=== PATIENT | male | born 1955 | race Caucasian/White ===

== ENCOUNTER 2023-08-03 09:32 | Outpatient (AMB) | payer MEDICARE, BC, SELFPAY ==
--- NOTE | 2023-08-03 09:35 | HO.NEPHOV ---
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 Accompanied by: Self / Same As Patient Allergies azithromycin Allergy (Verified 08/03/23 08:56) Unknown ciprofloxacin Allergy (Verified 08/03/23 08:56) Unknown rivaroxaban Allergy (Verified 08/03/23 08:56) Unknown simvastatin Allergy (Verified 08/03/23 08:56) Unknown torsemide Allergy (Verified 08/03/23 09:36) Unknown amiodarone Allergy (Uncoded 08/03/23 08:56) Unknown eggs Allergy (Uncoded 08/03/23 08:56) Unknown prednisone Allergy (Uncoded 08/03/23 08:56) Unknown rimantadine Allergy (Uncoded 08/03/23 08:56) Unknown HPI HPI Comments History of Present Illness Details Elmer was seen in follow up for CKD. He had recurrent AFib and underwent ablation by Dr Geovani Bentley. He could not handle Amiodarone in the past. His Allopurinol dose has been reduced as he thinks it was triggering runs of VT/SVT. He denies chest pain, shortness of breath, PND, orthopnea or edema. He is closely followed up by Dr Lopes/Mc. He had conversations with HF team for referral to [place] for heart / kidney transplantation.He is not on any new medications. His appetite is good. He tries to compliant with low sodium diet. Had rise in serum creatinine when he had recurrence of arrhythmia. His recent serum creatinine has been 2.1. He has not had any recurrence of renal stones Assessment & Plan Assessment & Plan (1) Calculus of kidney: Code(s): N20.0 - Calculus of kidney (2) Chronic kidney disease, stage 4 (severe): Code(s): N18.4 - Chronic kidney disease, stage 4 (severe) Plan Has CKD 4 for long time; Renal function remains at baseline Hemodynamics stable. Lytes acceptable; Volume status OK Continue to adjust diuretics on his own to keep him @ dry weight Ordered uric acid given reduction in allopurinol dose with H/O renal calculus( uric acid stone) Continue following up with HF team. If he goes to [place] for heart tx eval, he will need renal tx eval as well No other medication changes made today. Answered all questions; F/U given Time spent for data review/ patient encounter and documentation 48 minutes Orders: Orders Blood Urea Nitrogen 08/03/23 N18.4 - Chronic kidney disease, stage 4 (severe), N20.0 - Calculus of kidney Creatinine 08/03/23 N18.4 - Chronic kidney disease, stage 4 (severe), N20.0 - Calculus of kidney Electrolytes 08/03/23 N18.4 - Chronic kidney disease, stage 4 (severe), N20.0 - Calculus of kidney Calcium 08/03/23 N18.4 - Chronic kidney disease, stage 4 (severe), N20.0 - Calculus of kidney Uric Acid 08/03/23 N18.4 - Chronic kidney disease, stage 4 (severe), N20.0 - Calculus of kidney Phosphorus 08/03/23 N18.4 - Chronic kidney disease, stage 4 (severe), N20.0 - Calculus of kidney Vitamin D 25-OH Total 08/03/23 N18.4 - Chronic kidney disease, stage 4 (severe), N20.0 - Calculus of kidney PTHI 08/03/23 N18.4 - Chronic kidney disease, stage 4 (severe), N20.0 - Calculus of kidney Coding Level of Care Code Est Pt Level 5 (84840) Diagnoses Calculus of kidney N20.0 Chronic kidney disease, stage 4 (severe) N18.4 [facility] Medical History (Updated 08/03/23 @ 10:02 by Gregorio Pan MD) Cardiomyopathy Calculus of kidney Chronic kidney disease, stage 4 (severe) Surgical History (Updated 08/03/23 @ 09:37 by Bhargavi Christian MA) S/P ablation of atrial fibrillation Social History (Updated 08/03/23 @ 09:37 by Bhargavi Christian MA) Alcohol intake: never Patient Tobacco Use Status: Never used Tobacco Results Reviewed Results Reviewed: Serum creatinine 2.1; Lytes acceptable
[2023-08-03 09:37] VITALS: BP 80/60; BMI 25.9
== END 2023-08-03 10:11 | disposition home or self-care (01) ==
LOC: HO.HKA 09:32
PROVIDERS: Visit Provider Internal Medicine Nephrology
DX: N20.0 Calculus of kidney (principal); N18.4 Chronic kidney disease, stage 4 (severe)
CPT/HCPCS: 99215

== ENCOUNTER → 2023-08-03 09:32 | Outpatient (BNVA) | payer BC, MEDICARE, SELFPAY | PROVIDERS: Visit Provider Internal Medicine Nephrology ==

== ENCOUNTER 2023-11-02 14:18 | Outpatient (AMB) | payer MEDICARE, BC, SELFPAY ==
[2023-11-02 14:21] VITALS: BP 104/60; PULSE 70; O2SAT 99; BMI 26.4
--- NOTE | 2023-11-02 14:21 | HO.NEPHOV_ITS ---
HPI HPI Comments History of Present Illness Details Elmer was seen in follow up for CKD. He had recurrent AFib and underwent ablation by Dr Geovani Bentley. He could not handle Amiodarone in the past. He is back on Allopurinol. He is due to get his carotid doppler and right leg vascular study. He denies chest pain, shortness of breath, PND, orthopnea or edema. He is closely followed up by Dr Lopes/cM. He has been referred to [place] for heart / kidney transplantation.He is not on any new medications. His appetite is good. He tries to compliant with low sodium diet. Had rise in serum creatinine when he had recurrence of arrhythmia, but settled to baseline now. His recent serum creatinine has been 2.1. He has not had any recurrence of renal stones [facility] Medical History (Updated 11/02/23 @ 14:45 by Gregorio Pan MD) Cardiomyopathy Calculus of kidney Chronic kidney disease, stage 4 (severe) Surgical History S/P ablation of atrial fibrillation Social History Alcohol intake: never Patient Tobacco Use Status: Never used Tobacco Vital Signs 11/02/23 14:21 Height 5 ft 10 in Weight 184 lb 2 oz BMI 26.4 BP 104/60 Blood Pressure Location Lt brachial Position Sitting Pulse 70 Pulse Source Pulse Oximeter Pulse Oximetry (%) 99 Oxygen Delivery Method Room Air Physical Exam Vital Signs: Last Vital Signs Pulse 70 11/02/23 14:21 BP 104/60 11/02/23 14:21 Pulse Ox 99 11/02/23 14:21 Oxygen Delivery Method Room Air 11/02/23 14:21 BMI result Body Mass Index 26.4 Const General: comfortable and no acute distress Orientation/consciousness: patient oriented x3 HEENT Head: Yes normocephalic Mouth: Normal oral and palatal mucosa present Eyes EOM: EOMs intact bilaterally Neck Neck: Yes supple Resp Auscultation: clear to auscultation bilaterally Cardio Jugular venous distension: no JVD Rate: regular rate GI Palpation (GI): Soft to palpation Auscultation: normal bowel sounds General: Yes no CVA tenderness Back/Spine/Pelvis Back: no CVA tenderness Skin General skin exam: no rashes or lesions noted Neuro General: patient oriented x3 and moves all extremities Extrem General: Yes no pedal edema Assessment & Plan Assessment & Plan (1) Chronic kidney disease, stage 4 (severe): Code(s): N18.4 - Chronic kidney disease, stage 4 (severe) (2) Calculus of kidney: Code(s): N20.0 - Calculus of kidney (3) Cardiomyopathy: Code(s): I42.9 - Cardiomyopathy, unspecified Qualifiers: Cardiomyopathy type: ischemic Qualified Code(s): I25.5 - Ischemic cardiomyopathy (4) Secondary hyperparathyroidism of renal origin: Code(s): N25.81 - Secondary hyperparathyroidism of renal origin Plan Has CKD 4 for long time; Renal function remains at baseline Hemodynamics stable. Lytes acceptable; Volume status OK Continue to adjust diuretics on his own to keep him @ dry weight C/W current dose of Allopurinol ( uric acid stone) Continue following up with HF team. When he gets heart tx eval, he will need renal tx eval as well No other medication changes made today. Answered all questions; F/U given Orders: Orders Creatinine Today I42.9 - Cardiomyopathy, unspecified, N18.4 - Chronic kidney disease, stage 4 (severe), N20.0 - Calculus of kidney, N25.81 - Secondary hyperparathyroidism of renal origin Electrolytes Today I42.9 - Cardiomyopathy, unspecified, N18.4 - Chronic kidney disease, stage 4 (severe), N20.0 - Calculus of kidney, N25.81 - Secondary hyperparathyroidism of renal origin Blood Urea Nitrogen Today I42.9 - Cardiomyopathy, unspecified, N18.4 - Chronic kidney disease, stage 4 (severe), N20.0 - Calculus of kidney, N25.81 - Secondary hyperparathyroidism of renal origin Coding Level of Care Code Est Pt Level 4 (64677) Diagnoses Chronic kidney disease, stage 4 (severe) N18.4 Calculus of kidney N20.0 Ischemic cardiomyopathy I25.5 Cardiomyopathy type: ischemic Secondary hyperparathyroidism of renal origin N25.81 Results Reviewed Nephrology Results: No Data to Display
== END 2023-11-02 15:03 | disposition home or self-care (01) ==
PROVIDERS: Visit Provider Internal Medicine Nephrology
DX: N18.4 Chronic kidney disease, stage 4 (severe) (principal); N20.0 Calculus of kidney; I25.5 Ischemic cardiomyopathy; N25.81 Secondary hyperparathyroidism of renal origin
CPT/HCPCS: 99214

== ENCOUNTER → 2023-11-02 14:18 | Outpatient (BNVA) | payer BC, MEDICARE, SELFPAY | PROVIDERS: Visit Provider Internal Medicine Nephrology | DX: N20.0 Calculus of kidney (principal); N18.4 Chronic kidney disease, stage 4 (severe) ==

== ENCOUNTER 2024-01-18 08:15 | Outpatient (REF) | payer MEDICARE, SELFPAY ==
[2024-01-18 11:13] LABS: Anion Gap 12 (12-20); Blood Urea Nitrogen 30 mg/dL (9-16); Carbon Dioxide 25 mmol/L (22-29); Chloride 110 mmol/L (96-108); Estimated Glomerular Filt Rate 30; Potassium 4.3 mmol/L (3.3-5.1); Sodium 143 mmol/L (135-145)
== END 2024-01-18 08:16 | disposition home or self-care (01) ==
LOC: HO.10HDL 08:15
PROVIDERS: Visit Provider Internal Medicine Nephrology
DX: N18.4 Chronic kidney disease, stage 4 (severe) (principal)
CPT/HCPCS: 36415; 80051; 82565; 84520

== ENCOUNTER 2024-03-06 15:28 | Outpatient (REF) | payer MEDICARE, SELFPAY ==
[2024-03-06 17:49] LABS: Anion Gap 14 (12-20); Blood Urea Nitrogen 22 mg/dL (9-16); Calcium 9.4 mg/dL (8.4-10.2); Carbon Dioxide 23 mmol/L (22-29); Chloride 108 mmol/L (96-108); Estimated Glomerular Filt Rate 32; Sodium 141 mmol/L (135-145)
== END 2024-03-06 15:29 | disposition home or self-care (01) ==
LOC: HO.HKASLDS 15:28
PROVIDERS: Visit Provider Internal Medicine Nephrology
DX: N18.4 Chronic kidney disease, stage 4 (severe) (principal); N25.81 Secondary hyperparathyroidism of renal origin
CPT/HCPCS: 36415; 80051; 82310; 82565; 84520

== ENCOUNTER 2024-03-07 12:13 | Outpatient (AMB) | payer BC, SELFPAY ==
[2024-03-07 12:15] VITALS: BP 90/60; PULSE 61; O2SAT 97; BMI 26.1
--- NOTE | 2024-03-07 12:15 | HO.NEPHOV ---
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 He had recurrent AFib recently and had undergone cardioversion. He could not handle Amiodarone in the past. He is back on Allopurinol. He had his carotid doppler and right leg vascular study. He denies chest pain, shortness of breath, PND, orthopnea or edema. He is closely followed up by Dr Lopes/Mc. He has been referred to [place] for heart / kidney transplantation.He is not on any new medications. His appetite is good. He tries to compliant with low sodium diet. Had rise in serum creatinine when he had recurrence of arrhythmia, but settled to baseline now. His recent serum creatinine has been 2.1. He has not had any recurrence of renal stones [facility] Medical History (Updated 11/02/23 @ 14:45 by Gregorio Pan MD) Cardiomyopathy Calculus of kidney Chronic kidney disease, stage 4 (severe) Surgical History S/P ablation of atrial fibrillation Social History Alcohol intake: never Patient Tobacco Use Status: Never used Tobacco Physical Exam Vital Signs: Last Vital Signs Pulse 61 03/07/24 12:15 BP 90/60 03/07/24 12:15 Pulse Ox 97 03/07/24 12:15 Oxygen Delivery Method Room Air 03/07/24 12:15 BMI result Body Mass Index 26.1 Const General: comfortable and no acute distress Orientation/consciousness: patient oriented x3 HEENT Head: Yes normocephalic Mouth: Normal oral and palatal mucosa present Eyes EOM: EOMs intact bilaterally Neck Neck: Yes supple Resp Auscultation: clear to auscultation bilaterally Cardio Jugular venous distension: no JVD Rate: regular rate GI Palpation (GI): Soft to palpation Auscultation: normal bowel sounds General: Yes no CVA tenderness Back/Spine/Pelvis Back: no CVA tenderness Skin General skin exam: no rashes or lesions noted Neuro General: patient oriented x3 and moves all extremities Extrem General: Yes no pedal edema Results Reviewed Nephrology Results: Sodium 141 mmol/L (135-145) 03/06/24 Potassium 4.0 mmol/L (3.3-5.1) 03/06/24 Chloride 108 mmol/L (96-108) 03/06/24 Carbon Dioxide 23 mmol/L (22-29) 03/06/24 BUN 22 mg/dL (9-16) H 03/06/24 Creatinine 2.08 mg/dL (0.5-1.4) H 03/06/24 Calcium 9.4 mg/dL (8.4-10.2) 03/06/24 Assessment & Plan Assessment & Plan (1) Secondary hyperparathyroidism of renal origin: Code(s): N25.81 - Secondary hyperparathyroidism of renal origin Category: Medical (2) Cardiomyopathy: Code(s): I42.9 - Cardiomyopathy, unspecified Category: Medical Qualifiers: Cardiomyopathy type: ischemic Qualified Code(s): I25.5 - Ischemic cardiomyopathy (3) Calculus of kidney: Code(s): N20.0 - Calculus of kidney Category: Medical (4) Chronic kidney disease, stage 4 (severe): Code(s): N18.4 - Chronic kidney disease, stage 4 (severe) Category: Medical Plan Has CKD 4 for long time; Renal function remains at baseline Hemodynamics stable. Lytes acceptable; Volume status OK Continue to adjust diuretics on his own to keep him @ dry weight C/W current dose of Allopurinol ( uric acid stone) Continue following up with HF team. When he gets heart tx eval, he will need renal tx eval as well No other medication changes made today. Answered all questions; F/U given Orders: Orders Creatinine Today I25.5 - Ischemic cardiomyopathy, N18.4 - Chronic kidney disease, stage 4 (severe), N20.0 - Calculus of kidney, N25.81 - Secondary hyperparathyroidism of renal origin Calcium Today I25.5 - Ischemic cardiomyopathy, N18.4 - Chronic kidney disease, stage 4 (severe), N20.0 - Calculus of kidney, N25.81 - Secondary hyperparathyroidism of renal origin Phosphorus Today I25.5 - Ischemic cardiomyopathy, N18.4 - Chronic kidney disease, stage 4 (severe), N20.0 - Calculus of kidney, N25.81 - Secondary hyperparathyroidism of renal origin Vitamin D 25-OH Total Today I25.5 - Ischemic cardiomyopathy, N18.4 - Chronic kidney disease, stage 4 (severe), N20.0 - Calculus of kidney, N25.81 - Secondary hyperparathyroidism of renal origin Blood Urea Nitrogen Today I25.5 - Ischemic cardiomyopathy, N18.4 - Chronic kidney disease, stage 4 (severe), N20.0 - Calculus of kidney, N25.81 - Secondary hyperparathyroidism of renal origin Electrolytes Today I25.5 - Ischemic cardiomyopathy, N18.4 - Chronic kidney disease, stage 4 (severe), N20.0 - Calculus of kidney, N25.81 - Secondary hyperparathyroidism of renal origin Parathyroid Hormone Intact Today I25.5 - Ischemic cardiomyopathy, N18.4 - Chronic kidney disease, stage 4 (severe), N20.0 - Calculus of kidney, N25.81 - Secondary hyperparathyroidism of renal origin Coding Level of Care Code Est Pt Level 4 (10619) Diagnoses Secondary hyperparathyroidism of renal origin N25.81 Ischemic cardiomyopathy I25.5 Cardiomyopathy type: ischemic Calculus of kidney N20.0 Chronic kidney disease, stage 4 (severe) N18.4
== END 2024-03-07 12:59 | disposition home or self-care (01) ==
PROVIDERS: Visit Provider Internal Medicine Nephrology
DX: N25.81 Secondary hyperparathyroidism of renal origin (principal); I25.5 Ischemic cardiomyopathy; N20.0 Calculus of kidney; N18.4 Chronic kidney disease, stage 4 (severe)
CPT/HCPCS: 99214

== ENCOUNTER → 2024-03-07 12:13 | Outpatient (BNVA) | payer BC, MEDICARE, SELFPAY | PROVIDERS: Visit Provider Internal Medicine Nephrology ==

== ENCOUNTER 2024-06-05 10:29 | Outpatient (REF) | payer BC, SELFPAY ==
[2024-06-05 11:36] LABS: Anion Gap 10 (12-20); Blood Urea Nitrogen 32 mg/dL (9-16); Calcium 9.7 mg/dL (8.4-10.2); Carbon Dioxide 25 mmol/L (22-29); Chloride 109 mmol/L (96-108); Estimated Glomerular Filt Rate 29; Phosphorus 2.7 mg/dL (2.7-4.5); Sodium 140 mmol/L (135-145)
[2024-06-05 11:37] LABS: Parathyroid Hormone Intact 89.1 pg/mL (8.7-77.1)
[2024-06-05 11:52] LABS: Vitamin D 25-OH Total 30.2 ng/mL (>30)
== END 2024-06-05 10:30 | disposition home or self-care (01) ==
LOC: HO.10HDL 10:29
PROVIDERS: Visit Provider Internal Medicine Nephrology
DX: N25.81 Secondary hyperparathyroidism of renal origin (principal); N20.0 Calculus of kidney; N18.4 Chronic kidney disease, stage 4 (severe); I25.5 Ischemic cardiomyopathy
CPT/HCPCS: 36415; 80051; 82306; 82310; 82565; 83970; 84100; 84520

== ENCOUNTER 2024-06-06 11:00 | Outpatient (AMB) | payer MEDICARE, BC, SELFPAY ==
--- NOTE | 2024-06-06 11:06 | HO.NEPHOV ---
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 He had recurrent AFib recently and had undergone cardioversion. He could not handle Amiodarone in the past. He is back on Allopurinol. He had his carotid doppler and right leg vascular study. He denies chest pain, shortness of breath, PND, orthopnea or edema. He is closely followed up by Dr Lopes/Mc. He has been referred to [place] for heart / kidney transplantation.He is not on any new medications. His appetite is good. He tries to compliant with low sodium diet. Had rise in serum creatinine when he had recurrence of arrhythmia, but settled to baseline now. His recent serum creatinine has been stable. He has not had any recurrence of renal stones [facility] Medical History (Updated 11/02/23 @ 14:45 by Gregorio Pan MD) Cardiomyopathy Calculus of kidney Chronic kidney disease, stage 4 (severe) Surgical History S/P ablation of atrial fibrillation Social History Alcohol intake: never Patient Tobacco Use Status: Never used Tobacco Review of Systems Const All systems reviewed & are unremarkable except as noted in HPI and below Physical Exam Vital Signs: Last Vital Signs Pulse 71 06/06/24 11:07 BP 80/50 L 06/06/24 11:07 Pulse Ox 98 06/06/24 11:07 Oxygen Delivery Method Room Air 06/06/24 11:07 BMI result Body Mass Index 26.0 Const General: comfortable and no acute distress Orientation/consciousness: patient oriented x3 HEENT Head: Yes normocephalic Mouth: Normal oral and palatal mucosa present Eyes EOM: EOMs intact bilaterally Neck Neck: Yes supple Resp Auscultation: clear to auscultation bilaterally Cardio Jugular venous distension: no JVD Rate: regular rate GI Palpation (GI): Soft to palpation Auscultation: normal bowel sounds General: Yes no CVA tenderness Back/Spine/Pelvis Back: no CVA tenderness Skin General skin exam: no rashes or lesions noted Neuro General: patient oriented x3 and moves all extremities Extrem General: Yes no pedal edema Results Reviewed Nephrology Results: Sodium 140 mmol/L (135-145) 06/05/24 Potassium 4.0 mmol/L (3.3-5.1) 06/05/24 Chloride 109 mmol/L (96-108) H 06/05/24 Carbon Dioxide 25 mmol/L (22-29) 06/05/24 BUN 32 mg/dL (9-16) H 06/05/24 Creatinine 2.26 mg/dL (0.5-1.4) H 06/05/24 Calcium 9.7 mg/dL (8.4-10.2) 06/05/24 Phosphorus 2.7 mg/dL (2.7-4.5) 06/05/24 PTH Intact 89.1 pg/mL (8.7-77.1) H 06/05/24 Assessment & Plan Assessment & Plan (1) Chronic kidney disease, stage 4 (severe): Code(s): N18.4 - Chronic kidney disease, stage 4 (severe) Category: Medical (2) Calculus of kidney: Code(s): N20.0 - Calculus of kidney Category: Medical (3) Secondary hyperparathyroidism of renal origin: Code(s): N25.81 - Secondary hyperparathyroidism of renal origin Category: Medical Plan Has CKD 4 for long time; Renal function remains at baseline Hemodynamics stable. Lytes acceptable; Volume status OK Continue to adjust diuretics on his own to keep him @ dry weight C/W current dose of Allopurinol ( uric acid stone) Continue following up with HF team. When he gets heart tx eval, he will need renal tx eval as well No other medication changes made today. Answered all questions; F/U given Orders: Orders Blood Urea Nitrogen 3 Months N18.4 - Chronic kidney disease, stage 4 (severe) Electrolytes 3 Months N18.4 - Chronic kidney disease, stage 4 (severe) Uric Acid 3 Months N18.4 - Chronic kidney disease, stage 4 (severe) Creatinine 3 Months N18.4 - Chronic kidney disease, stage 4 (severe) Coding Level of Care Code Est Pt Level 4 (05257) Diagnoses Chronic kidney disease, stage 4 (severe) N18.4 Calculus of kidney N20.0 Secondary hyperparathyroidism of renal origin N25.81
[2024-06-06 11:07] VITALS: BP 80/50; PULSE 71; O2SAT 98; BMI 26.0
== END 2024-06-06 11:46 | disposition home or self-care (01) ==
PROVIDERS: PCP Internal Medicine; Visit Provider Internal Medicine Nephrology
DX: N18.4 Chronic kidney disease, stage 4 (severe) (principal); N20.0 Calculus of kidney; N25.81 Secondary hyperparathyroidism of renal origin
CPT/HCPCS: 99214

== ENCOUNTER → 2024-06-06 11:00 | Outpatient (BNVA) | payer BC, MEDICARE, SELFPAY | PROVIDERS: PCP Internal Medicine; Visit Provider Internal Medicine Nephrology ==

== ENCOUNTER 2024-12-04 11:32 | Outpatient (REF) | payer BC, MEDICARE, SELFPAY ==
[2024-12-04 13:50] LABS: Anion Gap 13 (12-20); Blood Urea Nitrogen 37 mg/dL (9-16); Carbon Dioxide 24 mmol/L (22-29); Chloride 107 mmol/L (96-108); Estimated Glomerular Filt Rate 28; Potassium 4.3 mmol/L (3.3-5.1); Sodium 140 mmol/L (135-145)
--- OUTSIDE RECORDS SUMMARY | 2024-12-04 14:10 | XMS_ITS | Encounter Summary ---
Author Organization [facility] Address [address] [place] [address] Phone Care Team Providers Care Human Resources Operations Director Name Role Phone Kimberly Crenshaw MD Primary Care Provider Encounter Details Date Type Department Care Team (Late st Contact Info) Description 02/23/2021 Orders Only [facility] [address] [place] [id number] Gregorio Pan MD Chronic kidney disease stage 4 (HCC); Renal stone Social History Tobacco Use Types Packs/Day Years Used Date Smoking Tobacco: Former Smokeless Tobacco: Former Sex and Gender Information Value Date Recorded Sex Assigned at Not on file Legal Sex Male 5:04 PM EST Gender Identity Not on file Sexual Orientation Not on file COVID-19 Exposure Response Date Recorded In the last month, have you been in contact with someone who was confirmed or suspected to have Coronavirus / COVID-19? No / Unsure 02/25/2021 2:07 PM EDT documented as of this encounter Plan of Treatment Not on file documented as of this encounter Procedures Procedure Name Priority Date/Time Associated Diagnosis Comments CBC Routine 02/24/2021 9:41 AM EDT Chronic kidney disease stage 4 (HCC) Renal stone RENAL FUNCTION PANEL Routine 02/24/2021 9:41 AM EDT documented in this encounter Results * (ABNORMAL) Renal Function Panel (02/24/2021 9:41 AM EDT) Pathologist [facility] Glucose 101(H) (70-99) MG/DL [facility] BUN 35(H) (8-23) MG/DL [facility] Creatinine 2.0(H) (0.7-1.2) MG/DL [facility] Sodium 140 (133-145) MMOL/L [facility] Potassium 4.3 (3.6-5.2) MMOL/L [facility] Chloride 107 (98-107) MMOL/L [facility] Bicarbonate (CO2) 22 (22-29) MMOL/L [facility] Anion Gap 11 (4-17) [facility] Albumin 4.3 (3.4-4.8) GM/DL [facility] Calcium 8.9 (8.6-10.5) MG/DL [facility] Phosphorus, Serum 3.0 (2.5-4.5) MG/DL [facility] Est GFR Non 34 ML/MIN/1.7 3 M2 [facility] Comment: Creatinine based estimated glomerular filtration rate (eGFR) is calculated using the Chronic Kidney Disease Epidemiology Collaboration (CKD-EPI). The CKD-EPI creatinine equation has not been validated in children (<18 years), women or in some racial or ethnic subgroups other than Caucasians and Americans. EST GFR 39 ML/MIN/1.7 3 M2 [facility] Comment: Creatinine based estimated glomerular filtration rate (eGFR) is calculated using the Chronic Kidney Disease Epidemiology Collaboration (CKD-EPI). The CKD-EPI creatinine equation has not been validated in children (<18 years), women or in some racial or ethnic subgroups other than Caucasians and Americans. Testing performed or reported by [facility], a Service of [facility], [address] [place] [address] Caitlyn Gonzalez MD, Watch Assembly Inspector 02/24/2021 9:41 AM EDT 02/24/2021 9:44 AM EDT us Gregorio Pan MD LAB BLOOD ORDERABLES Final Resul t [facility] * (ABNORMAL) CBC (02/24/2021 9:41 AM EDT) White Blood Cells 5.5 (4.0-11.0) K/MM3 [facility] RBC 4.56(L) (4.70-6.10 ) M/MM3 [facility] Hgb 13.9 (13.7-17.1 ) GM/DL [facility] Hematocrit 43.9 (40.5-50.0 ) % [facility] MCV 96.3(H) (80.0-94.0 ) FL [facility] MCH 30.5 (27.0-34.0 ) PG [facility] MCHC 31.7(L) (33.0-37.0 ) g/dL [facility] Platelets 121(L) (150-460) K/MM3 [facility] RDW-SD 47.3(H) (<47.0) FL [facility] MPV 12.1 (9.4-12.4) FL [facility] nRBC Count 0.0 #/100 WBC'S [facility] NRBC Absolute 0.0 K/MM3 [facility] Comment: Testing performed or reported by [facility], a Service of [facility], [address] [place] [id number] Caitlyn Gonzalez MD, Watch Assembly Inspector Blood (Blood, Venous) 02/24/2021 9:41 AM EDT 02/24/2021 9:44 AM EDT us Gregorio Pan MD LAB BLOOD ORDERABLES Final Resul t [facility] documented in this encounter Visit Diagnoses Diagnosis Chronic kidney disease stage 4 (HCC) Renal stone documented in this encounter Care Teams Human Resources Operations Director Relationship Specialty Start Date End Date Kimberly Crenshaw MD [address] PCP - General 10/11/20 documented as of this encounter
--- OUTSIDE RECORDS SUMMARY | 2024-12-04 14:10 | XMS_ITS | Clinical Summary ---
Author Organization [facility] Address [address] [facility] [address] [place] [address] Phone Care Team Providers Care Rocket Motor Tester Name Role Phone Kimberly Crenshaw MD Primary Care Provider Allergies Active Allergy Reactions Criticality Noted Date Comments Amiodarone 11/26/2020 Azithromycin 01/26/2022 reports either rash or difficulty breathing Ciprofloxacin Diarrhea 09/26/2021 Egg-Derived Products 11/26/2020 Other Anaphylaxis High 09/26/2021 Other reaction(s): throat closes Prednisone Vomiting 09/26/2021 Rimantadine 09/26/2021 Rivaroxaban 11/26/2020 Simvastatin 11/26/2020 Torsemide 11/26/2020 Medications apixaban (ELIQUIS) 5 MG tablet Take 1 tablet by mouth 2 (two) times a day Active famotidine (PEPCID) 20 MG tablet Take 1 tablet by mouth 1 (one) time each day Active furosemide (LASIX) 20 MG tablet Take 1 tablet by mouth Active isosorbide dinitrate (ISORDIL) 40 MG tablet Take 20 mg by mouth 4 (four) times a day Active sacubitril-oscar sartan (Entresto) 24-26 MG per tablet Take 1 tablet by mouth 2 (two) times a day Active spironolactone (ALDACTONE) 25 MG tablet Take 0.5 tablets by mouth 1 (one) time each day Active rosuvastatin (CRESTOR) 20 MG tablet Take 1 tablet by mouth 1 (one) time each day Active nitroglycerin (NITROSTAT) 0.4 MG SL tablet nitroglycerin 0.4 mg sublingual tablet DISSOLVE ONE TABLET UNDER THE TONGUE EVERY 5 MINUTES NEEDED FOR CHEST PAIN. DO NOT EXCEED A TOTAL OF 3 DOSES IN 15 MINUTES Active Clopidogrel Bisulfate (PLAVIX PO) Take 1 tablet by mouth 1 (one) time each day Active carvedilol (COREG) 12.5 MG tablet Take 12.5 mg by mouth 2 (two) times a day with meals Active dofetilide (TIKOSYN) 125 MCG capsule Take 125 mcg by mouth 2 (two) times a day Active clindamycin (CLEOCIN) 300 MG capsule 1 Active clopidogrel (PLAVIX) 75 MG tablet 1 Active Ascorbic Acid (vitamin C) 1000 MG tablet Take 1,000 mg by mouth 2 Active Zinc 10 MG lozenge Take 140 mg by mouth 5 Active fluticasone (FLONASE) 50 MCG/ACT nasal spray Administer into affected nostril(s) 4 Active Active Problems Problem Noted Date Diagnosed Date Finding of cardiovascular device 05/17/2023 05/17/2023 Heart failure with reduced ejection fraction 05/17/2023 Hypotension 05/17/2023 05/17/2023 Anemia 01/26/2022 Gout 01/26/2022 Ischemic myocardial dysfunction 01/26/2022 Acute nontraumatic kidney injury 11/26/2020 Benign hypertensive renal disease 11/26/2020 Chronic kidney disease stage 4 11/26/2020 Renal stone 11/26/2020 Resolved Problems Problem Noted Date Diagnosed Date Resolved Date Allergic rhinitis 01/26/2022 01/26/2022 Asthma 01/26/2022 01/26/2022 Atrial fibrillation 01/26/2022 01/27/20 22 Cardiomyopathy 01/26/2022 01/26/2022 Cervical spondylosis 01/26/2022 022 Chronic systolic heart failure 01/26/2022 01/26/2022 Ex-smoker 01/26/2022 01/26/2022 Impaired fasting glycemia 01/26/2022 Old myocardial infarction 01/26/2022 Overview (01/26/2022): ischemic Osteoarthritis 01/26/2022 01/26/2022 Overweight 01/26/2022 01/26/2022 Automatic implantable cardia c defibrillator in situ 01/05/2011 01/26/2022 Diffuse disease of coronary artery 11/26/2010 01/26/2022 Overview (01/26/2022): 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 Cath showed left main looks okay, LAD with diffuse disease, ramus of moderate size, proximal 75%, mid 90%, left circumflex 99%, mid 90%, with LVEDP 30-35%.CC 01/02/11 showed elevated LVEDP 32 mmHG, occluded RCA, recent ; 40% midLAD, Lcx 75%, OMB with 90%, 80% lesions. Immunizations Name Administration Dates Next Due Influenza Whole 06/13/2011 Pneumococcal Polysaccharide 06/13/2011 Tdap 03/24/2011 Family History Medical History Relation Comments Cancer Father Gout Father Heart disease Father Hypertension Father Dementia Mother Hypertension Mother Relation Status Comments Father Mother Social History Tobacco Use Types Packs/Day Years Used Date Smoking Tobacco: Former Smokeless Tobacco: Never Tobacco Cessation:Counseling Given: Not Answered Alcohol Use Standard Drinks/Week Comments Not Currently 0 (1 standard drink = 0.6 oz pur e alcohol) Sex and Gender Information Value Date Recorded Sex Assigned at Not on file Legal Sex Male 5:04 PM EST Gender Identity Not on file Sexual Orientation Not on file Last Filed Vital Signs Vital Sign Reading Time Taken Comments Blood Pressure 116/80 05/17/2023 5:11 PM EDT Pulse 68 05/17/2023 5:11 PM EDT Temperature 36.8 ??C (98.2 ??F) 09/26/2021 12:[address] Respiratory Rate - - Oxygen Saturation - - Inhaled Oxygen Concentration - - Weight 80.1 kg (176 lb 9.6 oz) 05/17/2023 5:11 P M EDT Height 177.8 cm (5' 10 ) 12/26/2019 12:00 PM EDT Body Mass Index 25.34 12/26/2019 12:00 PM EDT Plan of Treatment Health Maintenance Due Date Last Done Comments Colorectal Cancer Screening: Annual FOBT 2005 Colorectal Cancer Screening: Colonoscopy 2005 Colorectal Cancer Screening: Sigmoidoscopy 2005 Pneumococcal Vaccine: 65+ Ye ars (2 of 2 - PCV) 06/13/2012 06/13/2011 Influenza Vaccine (#1) 2024 06/13/2011 Hepatitis B Vaccine Aged Out No longe r eligible based on patient's age to complete this topic [place] [address] [place] [address] [place] [address] Care Teams Rocket Motor Tester Relationship Specialty Start Date End Date Kimberly Crenshaw MD [address] PCP - General 10/11/20
--- OUTSIDE RECORDS SUMMARY | 2024-12-04 14:10 | XMS_ITS | Continuity of Care Document ---
Author Organization [facility] Address [address] [place] [address]- Care Team Providers Care Digital Community Manager Name Role Phone Flower GALLARDO, Kimberly Primary Care Physician En[facility] [id number] Date(s): 11/03/24 - 12/03/24 [facility] [address] [place], [place] [address] Encounter Type: Triage Allergies, Adverse Reactions, Alerts Substance Criticality Severity Reaction Reaction Severity Status amiodarone High criticality Severe dyspnea skin rash Active torsemide High criticality Severe Act mony Egg Allergy throat closes Ac tive Xarelto High criticality Severe Act mony azithromycin 1 Activ e digoxin High criticality Moderate Rash Act mony predniSONE Unable to assess criticality Persistent Mild vomiting Proposed simvastatin elevated LFTs Acti ve Cipro DIARRHEA Active Nuts anaphylaxis Active Pork 2 Active 1reports either rash or difficulty breathing 2Tolerates heparin Immunizations Given and Recorded Vaccine Date Status Refusal Reason RSV vaccine, preF A-preF B, recombinant 07/08/24 R ecorded pneumococcal 20-valent conjugate vaccine 07/08/24 Recorded tetanus/diphtheria/pertussis, acel(Tdap) 07/08/24 Recorded tetanus/diphtheria/pertussis, acel(Tdap) 03/24/11 Given zoster vaccine, inactivated 07/07/24 Recorded influenza virus vaccine, inactivated 07/07/24 Anup rded SARS-CoV-2(COVID-19)mRNA-LNP vac([id number]) 07/07/24 Recorded hepatitis B adult vaccine 07/06/24 Recorded Hepatitis A Adult Vaccine 07/06/24 Recorded Pneumococcal Vaccine (oldterm) 1 06/13/11 Given FluLaval (oldterm) 2 06/13/11 Given 1Admin Note: Information sheet given 2Admin Note: [facility] info given to pt. Medications Acetaminophen 0 Refills, Maintenance, 10/28/24 11:12:00 AM EST, Partial fill upon patient request if the prescription is for a schedule II opioid drug. Start Date: 10/28/24 Status: Ordered Repeat number: 1 atovaquone 750 mg/5 mL oral suspension 5 mL = 750 mg, By Mouth, 2 times a day, 0 Refills, Maintenance, 10/28/24 11:08:00 AM EST, Partial fill upon patient request if the prescription is for a schedule II opioid drug. Start Date: 10/28/24 Status: Ordered Repeat number: 1 enoxaparin 80 mg/0.8 mL injectable solution 0 Refills, Maintenance, 10/07/24 2:34:00 PM EST, Partial fill upon patient request if the prescription is for a schedule II opioid drug. Start Date: 10/07/24 Status: Ordered Repeat number: 1 ferrous sulfate 325 mg oral tablet 1 tablet = 325 mg, By Mouth, Daily, # 90 tablet, 0 Refills, Maintenance, 10/28/24 11:04:00 AM EST, Tablet, Partial fill upon patient request if the prescription is for a schedule II opioid drug. Start Date: 10/28/24 Status: Ordered Quantity: 90.0 Unit: tablet Repeat number: 1 furosemide 40 mg oral tablet 20 mg, 0.5, tablet, Refills 0, Maintenance, 10/07/24 2:34:00 PM EST, Partial fill upon patient request if the prescription is for a schedule II opioid drug. Start Date: 10/07/24 Status: Ordered Repeat number: 1 Magnesium Oxide By Mouth, 0 Refills, Maintenance, 10/28/24 11:09:00 AM EST, Partial fill upon patient request if theprescription is for a schedule II opioid drug. Start Date: 10/28/24 Status: Ordered Repeat number: 1 multivitamin with iron Multiple Vitamins with Iron oral tablet 1 tablet, By Mouth, Daily, # 90 tablet, 0 Refills, Maintenance, 10/28/24 11:12:00 AM EST, Tablet, Partial fill upon patient request if the prescription is for a schedule II opioid drug. Start Date: 10/28/24 Status: Ordered Quantity: 90.0 Unit: tablet Repeat number: 1 mycophenolate mofetil 250 mg oral capsule 4 capsule = 1,000 mg, By Mouth, 2 times a day, 0 Refills, Maintenance, 10/28/24 11:13:00 AM EST, Partial fill upon patient request if the prescription is for a schedule II opioid drug. Start Date: 10/28/24 Status: Ordered Repeat number: 1 nystatin 737066 u/ml oral suspension 0 Refills, Maintenance, 10/07/24 2:34:00 PM EST, Partial fill upon patient request if the prescription is for a schedule II opioid drug. Start Date: 10/07/24 Status: Ordered Repeat number: 1 omeprazole 20 mg oral enteric coated capsule 0 Refills, Maintenance, 10/07/24 2:34:00 PM EST, Partial fill upon patient request if the prescription is for a schedule II opioid drug. Start Date: 10/07/24 Status: Ordered Repeat number: 1 predniSONE 2.5 mg oral tablet 1 tablet = 2.5 mg, By Mouth, Daily, 0 Refills, Maintenance, 10/24/24 12:01:00 PM EST, Partial fill upon patient request if the prescription is for a schedule II opioid drug. Start Date: 10/24/24 Status: Ordered Repeat number: 1 predniSONE 5 mg oral tablet 1 tablet = 5 mg, By Mouth, Daily, 0 Refills, Maintenance, 10/24/24 12:01:00 PM EST, Partial fill upon patient request if the prescription is for a schedule II opioid drug. Start Date: 10/24/24 Status: Ordered Repeat number: 1 rosuvastatin 20 mg oral tablet 0 Refills, Maintenance, 10/24/24 11:43:00 AM EST, Partial fill upon patient request if the prescription is for a schedule II opioid drug. Start Date: 10/24/24 Status: Ordered Repeat number: 1 Senna By Mouth, 0 Refills, Maintenance, 10/28/24 11:12:00 AM EST, Partial fill upon patient request if theprescription is for a schedule II opioid drug. Start Date: 10/28/24 Status: Ordered Repeat number: 1 tacrolimus 0.5 mg oral capsule 1 capsule = 0.5 mg, By Mouth, 2 times a day, 0 Refills, Maintenance, 10/24/24 12:00:00 PM EST, Capsule, Partial fill upon patient request if the prescription is for a schedule II opioid drug. Start Date: 10/24/24 Status: Ordered Repeat number: 1 tacrolimus 1 mg oral capsule 3 capsule = 3 mg, 0 Refills, Maintenance, 10/07/24 2:34:00 PM EST, Partial fill upon patient request if the prescription is for a schedule II opioid drug. Start Date: 10/07/24 Status: Ordered Repeat number: 1 valganciclovir 450 mg oral tablet 900 mg, 2, tablet, By Mouth, Daily, Refills 0, Maintenance, 10/28/24 11:08:00 AM EST, Partial fill upon patient request if the prescription is for a schedule II opioid drug. Start Date: 10/28/24 Status: Ordered Repeat number: 1 Vitamin C By Mouth, Daily, 0 Refills, Maintenance, 10/28/24 11:04:00 AM EST, Partial fill upon patient requestif the prescription is for a schedule II opioid drug. Start Date: 10/28/24 Status: Ordered Repeat number: 1 Vitamin D3 1000 intl units oral capsule 1 capsule = 25 mcg, By Mouth, Daily, 0 Refills, Maintenance, 10/28/24 11:05:00 AM EST, Partial fill upon patient request if the prescription is for a schedule II opioid drug. Start Date: 10/28/24 Status: Ordered Repeat number: 1 Problem List Condition Confirmation Course Effective Dates Status H ealth Status Informant Allergic rhinitis Confirmed Active Anemia Confirmed Active Asthma Confirmed Active Atrial fibrillation Confirmed 2016 Active Medtronic Virtuoso II VR single chamber ICD Confirmed 01/05/11 Active Cervical spine degeneration Confirmed Active CKD (chronic kidney disease) stage 4, GFR 15-29 ml/min Confirmed Active Diffuse disease of coronary artery 1, 2 Confirmed 11/26/10 Active Ex-smoker, quit 11/2010 Confirmed Active Gout Confirmed Active S/P orthotopic heart transplant Confirmed Active Heart failure with reduced ejection fraction Confirmed Active History of DVT of lower extremity Confirmed Active History of myocardial infarction Confirmed Active S/P kidney transplant Confirmed Active Impaired fasting glucose Confirmed 2010 Active Ischemic cardiomyopathy Confirmed Active LV dysfunction, EF 15-20% Confirmed Active Hypotension Confirmed Active NSVT (nonsustained ventricular tachycardia) Confirmed Active OA (osteoarthritis) Confirmed Active ACC/AHA stage D heart failure 3 Confirmed Active 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 Cath showed left main looks okay, LAD with diffuse disease, ramus of moderate size, proximal 75%, mid 90%, left circumflex 99%, mid 90%, with LVEDP 30-35%. 2CC 01/02/11 showed elevated LVEDP 32 mmHG, occluded RCA, recent ; 40% midLAD, Lcx 75%, OMB with 90%,80% lesions. 3Per Dr. Lopes's note 07/24/2023. Social History Social History Type Response Smoking Status Former smoker; Tobac co user in household: No; Other: pt states he quit smoking in Nov 2010; entered on: 01/18/15 Sex Sex Representation Male (finding) Patient Care team information Care Team Personnel Name: Claudia Cortes NP Position: Reference Physician Member Role: Primary Care Nurse Address: [address] [place] [address]- Telecom: Name: Marsha Quiles Position: S RN Supv Member Role: Primary Care Nurse Name: Christina Chambers RN Position: [facility] RN Member Role: Primary Care Nurse Name: Gregorio Pan MD Position: [facility] Renal MD Member Role: Lifetime Consulting Physician Address: [address] [place] [address] [address] [facility] [place] [address]- [place] Telecom: Name: Maxim Henderson RN Position: S RN Member Role: Primary Care Nurse Name: Shruthi Gupta RN Position: [facility] RN Member Role: Primary Care Nurse Name: Brisa Anderson RN Position: S RN Member Role: Primary Care Nurse Name: Alana Herrera RN Position: S RN Member Role: Primary Care Nurse Name: Adrienne Hooker RN Position: [facility] SN RN Member Role: Primary Care Nurse Name: Vincent Padilla RN Position: [facility] RN Member Role: Primary Care Nurse Name: Neftaly Escalante RN Position: [facility] RN Supv Member Role: Primary Care Nurse Name: Bhargavi Christian Position: [facility] AMB Nurse Member Role: Lifetime Consulting Physician Name: Deirdre Rai RN Position: [facility] ED RN W/OE and Tasks Member Role: Primary Care Nurse Name: Kimberly Crenshaw MD Position: [facility] Physician - Primary Care Member Role: PCP Address: [address] [place] [address] [place] Telecom: Name: Carly Mccarthy NP Position: [facility] Outreach Member Role: Lifetime Consulting Physician Address: [address] [place] [address]- Telecom: Name: Shea Triplett MD Position: [facility] Cardiology MD Member Role: Lifetime Consulting Physician Name: Adrienne Renteria RN Position: [facility] RN Member Role: Primary Care Nurse Name: Dixie Whitney RN Position: [facility] OB RN Member Role: Primary Care Nurse Name: Romel Lopes DO Position: [facility] Cardiology MD Member Role: Lifetime Consulting Physician Address: [address] [place] [address], [address] [facility] [place] [address]- [place] Telecom: Name: Jenifer Aguilar RN Position: [facility] RN Member Role: Primary Care Nurse Care Team Related Persons Name: SALTY SANCHEZ Name: KAYLA NUÑEZ Insurance Providers Guarantor name: [place] SANCHEZ Health Plan Information #: 1 Payer: NA Member Number: NA Policy Number: NA Group Number: NA
--- OUTSIDE RECORDS SUMMARY | 2024-12-04 14:10 | XMS_ITS | Continuity of Care Document ---
Author Organization [facility] Address [facility] [place] [address]- Care Team Providers Care Steel Division Supervisor Name Role Phone Flower GALLARDO, Kimberly Primary Care Physician Encounter [facility] Date(s): 10/31/24 - 11/30/24 [facility] [address] [place] [id number]- Encounter Type: Triage Allergies, Adverse Reactions, Alerts Substance Criticality Severity Reaction Reaction Severity Status Cipro DIARRHEA Active Xarelto High criticality Severe Act mony amiodarone High criticality Severe dyspnea skin rash Active azithromycin 1 Activ e digoxin High criticality Moderate Rash Act mony predniSONE Unable to assess criticality Persistent Mild vomiting Proposed simvastatin elevated LFTs Acti ve torsemide High criticality Severe Act mony Nuts anaphylaxis Active Pork 2 Active Egg Allergy throat closes Ac tive 1reports either rash or difficulty breathing 2Tolerates heparin Immunizations Given and Recorded Vaccine Date Status Refusal Reason RSV vaccine, preF A-preF B, recombinant 07/08/24 R ecorded pneumococcal 20-valent conjugate vaccine 07/08/24 Recorded tetanus/diphtheria/pertussis, acel(Tdap) 07/08/24 Recorded tetanus/diphtheria/pertussis, acel(Tdap) 03/24/11 Given zoster vaccine, inactivated 07/07/24 Recorded influenza virus vaccine, inactivated 07/07/24 Anup rded SARS-CoV-2(COVID-19)mRNA-LNP vac([id number]) 07/07/24 Recorded hepatitis B adult vaccine 07/06/24 [...] 10/28/24 Status: Ordered Repeat number: 1 nystatin 915155 u/ml oral suspension 0 Refills, Maintenance, 10/07/24 [...] D heart failure 3 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 and [...] Physician Member Role: Primary Care Nurse Address: [address] [place] [address]- Telecom: Name: Marsha Quiles Position: [facility] RN Supv Member Role: Primary Care Nurse Name: Christina Chambers RN Position: [facility] RN Member Role: Primary Care Nurse Name: Gregorio Pan MD Position: [facility] Renal MD Member Role: Lifetime Consulting Physician Address: [address] [place] [address] [address] [place] [address]- Telecom: Name: Maxim Henderson RN Position: [facility] RN Member Role: Primary Care Nurse Name: Shruthi Gupta RN Position: [facility] SN RN Member Role: Primary Care Nurse Name: Brisa Anderson RN Position: S RN Member Role: Primary Care Nurse Name: Alana Herrera RN Position: S RN Member Role: Primary Care Nurse Name: Adrienne Hooker RN Position: [facility] SN RN Member Role: Primary Care Nurse Name: Vincent Padilla RN Position: [facility] RN Member Role: Primary Care Nurse Name: Neftaly Escalante RN Position: [facility] RN Supv Member Role: Primary Care Nurse Name: Bhargavi Christian Position: [facility] AMB Nurse Member Role: Lifetime Consulting Physician Name: Deirdre Rai RN Position: [facility] ED RN W/OE and Tasks Member Role: Primary Care Nurse Name: Kimberly Crenshaw MD Position: [facility] Physician - Primary Care Member Role: PCP Address: [address] [place] [address] [address] [place] [address]- Telecom: Name: Carly Mccarthy NP Position: [facility] Outreach Member Role: Lifetime Consulting Physician Address: [address] [place] [address]- Telecom: Name: Shea Triplett MD Position: [facility] Cardiology MD Member Role: Lifetime Consulting Physician Name: Adrienne Renteria RN Position: [facility] RN Member Role: Primary Care Nurse Name: Dixie Whitney RN Position: [facility] OB RN Member Role: Primary Care Nurse Name: Romel Lopes DO Position: [facility] Cardiology MD Member Role: Lifetime Consulting Physician Address: [address] [place] [address], [address] [place] [address]- [place] Telecom: Name: Jenifer Aguilar RN Position: [facility] RN Member Role: Primary Care Nurse Care Team Related Persons Name: RINKUPEPERADHASALTY Name: KAYLA NUÑEZ Insurance Providers [facility] Plan Information #: 1 Payer: NA Member Number: NA Policy Number: NA Group Number: NA
--- OUTSIDE RECORDS SUMMARY | 2024-12-04 14:11 | XMS_ITS | Continuity of Care Document ---
Author Organization [facility] Adult Address [address] [place] [address]- Care Team Providers Care Swimming Pool Service Technician Name Role Phone Flower GALLARDO, Kimberly [facility] Care [id number]15/24 - 11/14/24 [facility] Adult [address] [place], [place] [address] Encounter Type: Triage Allergies, Adverse Reactions, Alerts Substance Criticality Severity Reaction Reaction Severity Status amiodarone High criticality Severe dyspnea skin rash Active azithromycin 1 Activ e digoxin High criticality Moderate Rash Act mony predniSONE Unable to assess criticality Persistent Mild vomiting Proposed simvastatin elevated LFTs Acti ve torsemide High criticality Severe Act mony Cipro DIARRHEA Active Nuts anaphylaxis Active Pork 2 Active Egg Allergy throat closes Ac tive Xarelto High criticality Severe Act mony 1reports either rash or difficulty breathing 2Tolerates heparin Immunizations Given and Recorded Vaccine Date Status Refusal Reason RSV vaccine, preF A-preF B, recombinant 07/08/24 R ecorded pneumococcal 20-valent conjugate vaccine 07/08/24 Recorded tetanus/diphtheria/pertussis, acel(Tdap) 07/08/24 Recorded tetanus/diphtheria/pertussis, acel(Tdap) 03/24/11 Given zoster vaccine, inactivated 07/07/24 Recorded influenza virus vaccine, inactivated 07/07/24 Anup rded SARS-CoV-2(COVID-19)mRNA-LNP vac([id number]) 07/07/24 Recorded hepatitis B adult vaccine 07/06/24 Recorded Hepatitis A Adult Vaccine 07/06/24 Recorded Pneumococcal Vaccine (oldterm) 1 06/13/11 Given FluLaval (oldterm) 2 06/13/11 Given 1Admin Note: Information sheet [facility] 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 left [...] Physician Member Role: Primary Care Nurse Address: [address] [place] [address]- Telecom: Name: Marsha Quiles Position: S RN Supv Member Role: Primary Care Nurse Name: Christina Chambers RN Position: [facility] RN Member Role: Primary Care Nurse Name: Gregorio Pan MD Position: [facility] Renal MD Member Role: Lifetime Consulting Physician Address: [address] [place] [address] [address] [facility] [place] [address]- [place] Telecom: Name: Maxim Henderson RN Position: S RN Member Role: Primary Care Nurse Name: Shruthi Gupta RN Position: [facility] RN Member Role: Primary Care Nurse Name: Brisa Anderson RN Position: S RN Member Role: Primary Care Nurse Name: Alana Herrera RN Position: S RN Member Role: Primary Care Nurse Name: Adrienne Hooker RN Position: [facility] SN RN Member Role: Primary Care Nurse Name: Vincent Padilla RN Position: [facility] ED RN W/OE and Tasks Member Role: Primary Care Nurse Name: Neftaly Escalante RN Position: [facility] RN Member Role: Primary Care Nurse Name: Bhargavi Christian Position: [facility] AMB Nurse Member Role: Lifetime Consulting Physician Name: Deirdre Rai RN Position: [facility] ED RN W/OE and Tasks Member Role: Primary Care Nurse Name: Kimberly Crenshaw MD Position: [facility] Physician - Primary Care Member Role: PCP Address: [address] [place] [address]- [place] Telecom: Name: Carly Mccarthy NP Position: [facility] Outreach Member Role: Lifetime Consulting Physician Address: [address] [place] [address]- Telecom: Name: Shea Triplett MD Position: [facility] Cardiology MD Member Role: Lifetime Consulting Physician Name: Adrienne Renteria RN Position: [facility] RN Member Role: Primary Care Nurse Name: Dixie Whitney RN Position: [facility] OB RN Member Role: Primary Care Nurse Name: Romel Lopes DO Position: [facility] Cardiology MD Member Role: Lifetime Consulting Physician Address: [address] [place] [address], [address] [place] [address]- [place] Telecom: Name: Jenifer Aguilar RN Position: [facility] RN Member Role: Primary Care Nurse Care Team Related Persons Name: SALTY SANCHEZ Name: KAYLA NUÑEZ Insurance Providers Guarantor name: [place] PRE[employer] [place] Plan Information #: 1 Payer: NA Member Number: NA Policy Number: NA Group Number: NA
--- OUTSIDE RECORDS SUMMARY | 2024-12-04 14:11 | XMS_ITS | Continuity of Care Document ---
Author Organization [facility] Address [address] [place] [address]- Care Team Providers Care Igniter Assembler Name Role Phone Flower GALLARDO, [place] Primary Care Physician Encounter [id number] Date(s): 11/10/24 - 11/10/24 [facility] [address] [place] [address]- Encounter Type: Results Only Allergies, Adverse Reactions, Alerts Substance Criticality Severity Reaction Reaction Severity Status amiodarone High criticality Severe dyspnea skin rash Active torsemide High criticality Severe Act mony Xarelto High criticality Severe Act mony azithromycin [...] virus vaccine, inactivated 07/07/24 Anup rded SARS-CoV-2(COVID-19)mRNA-LNP vac([id number]) 07/07/24 Recorded hepatitis B adult vaccine 07/06/24 Recorded Hepatitis A Adult Vaccine 07/06/24 Recorded Pneumococcal Vaccine (oldterm) 1 06/13/11 Given FluLaval (oldterm) 2 06/13/11 Given 1Admin Note: Information sheet given 2Admin Note: [facility] info given to pt. 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 [...] Physician Member Role: Primary Care Nurse Address: [address] [place] [address]- Telecom: Name: Marsha Quiles Position: [facility] RN Supv Member Role: Primary Care Nurse Name: Christina Chambers RN Position: [facility] RN Member Role: Primary Care Nurse Name: Gregorio Pan MD Position: [facility] Renal MD Member Role: Lifetime Consulting Physician Address: [address] [place] [address] [address] [facility] [address]- Telecom: Name: Maxim Henderson RN Position: S RN Member Role: Primary Care Nurse Name: Shruthi Gupta RN Position: [facility] SN RN Member Role: Primary Care Nurse Name: Brisa Anderson RN Position: S RN Member Role: Primary Care Nurse Name: Alana Herrera RN Position: S RN Member Role: Primary Care Nurse Name: Adrienne Hooker RN Position: [facility] SN RN Member Role: Primary Care Nurse Name: Vincent Padilla RN Position: [facility] ED RN W/OE and Tasks Member Role: Primary Care Nurse Name: Neftaly Escalante RN Position: [facility] RN Member Role: Primary Care Nurse Name: Bhargavi Christian Position: [facility] AMB Nurse Member Role: Lifetime Consulting Physician Name: Deirdre Rai RN Position: [facility] ED RN W/OE and Tasks Member Role: Primary Care Nurse Name: Kimberly Crenshaw MD Position: [facility] Physician - Primary Care Member Role: PCP Address: [address] [place] [address]- Telecom: Name: Carly Mccarthy NP Position: [facility] Outreach Member Role: Lifetime Consulting Physician Address: [address] [place] [address]- Telecom: Name: Shea Triplett MD Position: [facility] Cardiology MD Member Role: Lifetime Consulting Physician Name: Adrienne Renteria RN Position: [facility] RN Member Role: Primary Care Nurse Name: Dixie Whitney RN Position: [facility] OB RN Member Role: Primary Care Nurse Name: Romel Lopes DO Position: [facility] Cardiology MD Member Role: Lifetime Consulting Physician Address: [address] [place] [address], [address] [facility] [place] [address]- [place] Telecom: Name: Jenifer Aguilar RN Position: [facility] RN Member Role: Primary Care Nurse Care Team Related Persons Name: SALTY SANCHEZ Name: KAYLA NUÑEZ Insurance Providers Guarantor name: [place] SANCHE[place] Health Plan Information #: 1 Payer: NA Member Number: NA Policy Number: NA Group Number: NA Health Plan Information #: 2 Payer: MEDICARE PART B OUTPT Member Number: NA Policy Number: NA Group Number: NA
--- OUTSIDE RECORDS SUMMARY | 2024-12-04 14:11 | XMS_ITS | Continuity of Care Document ---
Author Organization [facility] Adult Address [address] [place] [address]- Care Team Providers Care Marine Operations Coordinator Name Role Phone Flower GALLARDO, Kimberly Primary Care Physician [id number] Date(s): 10/15/24 - 11/14/24 [facility] Adult [address] [place], [place] [address] Encounter Type: Triage Allergies, Adverse Reactions, Alerts [...] virus vaccine, inactivated 07/07/24 Anup rded SARS-CoV-2(COVID-19)mRNA-LNP vac([id number]) 07/07/24 Recorded hepatitis B adult vaccine 07/06/24 Recorded Hepatitis A Adult Vaccine 07/06/24 Recorded Pneumococcal Vaccine (oldterm) 1 06/13/11 Given FluLaval (oldterm) 2 06/13/11 Given 1Admin Note: Information sheet given 2Admin Note: [facility] info given to pt. 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 [...] Physician Member Role: Primary Care Nurse Address: [address] [place] [address]- Telecom: Name: Marsha Quiles Position: S RN Supv Member Role: Primary Care Nurse Name: Christina Chambers RN Position: [facility] RN Member Role: Primary Care Nurse Name: Gregorio Pan MD Position: [facility] Renal MD Member Role: Lifetime Consulting Physician Address: [address] [place] [address] [address] [facility] [place] [address]- [place] Telecom: Name: Maxim Henderson RN Position: S RN Member Role: Primary Care Nurse Name: Shruthi Gupta RN Position: [facility] RN Member Role: Primary Care Nurse Name: Brisa Anderson RN Position: S RN Member Role: Primary Care Nurse Name: Alana Herrera RN Position: S RN Member Role: Primary Care Nurse Name: Adrienne Hooker RN Position: [facility] SN RN Member Role: Primary Care Nurse Name: Vincent Padilla RN Position: [facility] ED RN W/OE and Tasks Member Role: Primary Care Nurse Name: Neftaly Escalante RN Position: [facility] RN Member Role: Primary Care Nurse Name: Bhargavi Christian Position: [facility] AMB Nurse Member Role: Lifetime Consulting Physician Name: Deirdre Rai RN Position: [facility] ED RN W/OE and Tasks Member Role: Primary Care Nurse Name: Kimberly Crenshaw MD Position: [facility] Physician - Primary Care Member Role: PCP Address: [address] [place] [address]- [place] Telecom: Name: Carly Mccarthy NP Position: [facility] Outreach Member Role: Lifetime Consulting Physician Address: [address] [place] [address]- Telecom: Name: Shea Triplett MD Position: [facility] Cardiology MD Member Role: Lifetime Consulting Physician Name: Adrienne Renteria RN Position: [facility] RN Member Role: Primary Care Nurse Name: Dixie Whitney RN Position: [facility] OB RN Member Role: Primary Care Nurse Name: Romel Lopes DO Position: [facility] Cardiology MD Member Role: Lifetime Consulting Physician Address: [address] [place] [address], [address] [place] [address]- [place] Telecom: Name: Jenifer Aguilar RN Position: [facility] RN Member Role: Primary Care Nurse Care Team Related Persons Name: SALTY SANCHEZ Name: KAYLA NUÑEZ Insurance Providers Guarantor name: [place] [employer] [facility] Plan Information #: 1 Payer: NA Member Number: NA Policy Number: NA Group Number: NA
--- OUTSIDE RECORDS SUMMARY | 2024-12-04 14:11 | XMS_ITS | Continuity of Care Document ---
Author Organization [facility] Adult Address [address] [place] [address]- Care Team Providers Care Commercial Finance Analyst Name Role Phone Flower GALLARDO, Kimberly Primary Care Physician [id number] Date(s): 11/03/24 - 12/03/24 [facility] Adult [address] [place], [place] [address] Encounter Type: Triage Allergies, Adverse Reactions, Alerts Substance Criticality Severity Reaction Reaction Severity Status Xarelto High criticality Severe Act mony amiodarone [...] virus vaccine, inactivated 07/07/24 Anup rded SARS-CoV-2(COVID-19)mRNA-LNP vac([id number]) 07/07/24 Recorded hepatitis B adult vaccine 07/06/24 Recorded Hepatitis A Adult Vaccine 07/06/24 Recorded Pneumococcal Vaccine (oldterm) 1 06/13/11 Given FluLaval (oldterm) 2 06/13/11 Given 1Admin Note: Information sheet given 2Admin Note: [facility]NOTE 3] info given to pt. 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 [...] Physician Member Role: Primary Care Nurse Address: [address] [place] [address]- Telecom: Name: Marsha Quiles Position: S RN Supv Member Role: Primary Care Nurse Name: Christina Chambers RN Position: [facility] RN Member Role: Primary Care Nurse Name: Gregorio Pan MD Position: [facility] Renal MD Member Role: Lifetime Consulting Physician Address: [address] [place] [address] [address] [place] [address]- [place] Telecom: Name: Maxim Henderson RN Position: S RN Member Role: Primary Care Nurse Name: Shruthi Gupta RN Position: [facility] RN Member Role: Primary Care Nurse Name: Brisa Anderson RN Position: S RN Member Role: Primary Care Nurse Name: Alana Herrera RN Position: S RN Member Role: Primary Care Nurse Name: Adrienne Hooker RN Position: [facility] SN RN Member Role: Primary Care Nurse Name: Vincent Padilla RN Position: [facility] RN Member Role: Primary Care Nurse Name: Neftaly Escalante RN Position: [facility] RN Supv Member Role: Primary Care Nurse Name: Bhargavi Christian Position: [facility] AMB Nurse Member Role: Lifetime Consulting Physician Name: Deirdre Rai RN Position: [facility] ED RN W/OE and Tasks Member Role: Primary Care Nurse Name: Kimberly Crenshaw MD Position: [facility] Physician - Primary Care Member Role: PCP Address: [address] [place] [address]- [place] Telecom: Name: Carly Mccarthy NP Position: [facility] Outreach Member Role: Lifetime Consulting Physician Address: [address] [place] [address]- Telecom: Name: Shea Triplett MD Position: [facility] Cardiology MD Member Role: Lifetime Consulting Physician Name: Adrienne Renteria RN Position: [facility] RN Member Role: Primary Care Nurse Name: Dixie Whitney RN Position: [facility] OB RN Member Role: Primary Care Nurse Name: Romel oLpes DO Position: [facility] Cardiology MD Member Role: Lifetime Consulting Physician Address: [address] [place] [address], [address] [facility] [place] [address]- [place] Telecom: Name: Jenifer Aguilar RN Position: [facility] RN Member Role: Primary Care Nurse Care Team Related Persons Name: SALTY SANCHEZ Name: KAYLA NUÑEZ Insurance Providers Guarantor name: [place] SANCHE[place] Health Plan Information #: 1 Payer: NA Member Number: NA Policy Number: NA Group Number: NA
--- OUTSIDE RECORDS SUMMARY | 2024-12-04 14:11 | XMS_ITS | Continuity of Care Document ---
Author Organization [facility] Adult Address [address] [place] [address]- Care Team Providers Care Engineering Recruiter Name Role Phone Flower GALLARDO, Kimberly Primary Care Physician Encounter [facility] [id number] Date(s): 10/09/24 - 11/08/24 [facility] Adult [address] [place], [place] [address] Encounter Type: Triage Allergies, Adverse Reactions, Alerts Substance Criticality Severity Reaction Reaction Severity Status amiodarone High criticality Severe dyspnea skin rash Active torsemide High criticality Severe Act mony Cipro DIARRHEA Active Xarelto High criticality Severe Act mony azithromycin 1 Activ e digoxin High criticality Moderate Rash Act mony predniSONE Unable to assess criticality Persistent Mild vomiting Proposed simvastatin elevated LFTs Acti ve Nuts anaphylaxis Active Pork 2 Active Egg [...] virus vaccine, inactivated 07/07/24 Anup rded SARS-CoV-2(COVID-19)mRNA-LNP vac([id number]) 07/07/24 Recorded hepatitis B adult vaccine 07/06/24 Recorded Hepatitis A Adult Vaccine 07/06/24 Recorded Pneumococcal Vaccine (oldterm) 1 06/13/11 Given FluLaval (oldterm) 2 06/13/11 Given 1Admin Note: Information sheet given 2Admin Note: [facility] info given to pt. 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 Cath showed left main looks okay, LAD with diffuse disease, ramus of moderate size, proximal 75%, mid 90%, left circumflex 99%, mid 90%, with LVEDP 30-35%. 2CC 01/02/11 showed elevated LVEDP 32 mmHG, occluded RCA, recent ; 40% midLAD, Lcx 75%, OMB with 90%,80% lesions. 3Per Dr. oLpes's note 07/24/2023. Social History Social History Type Response Smoking Status Former smoker; Tobac co user in household: No; Other: pt states he quit smoking in Nov 2010; entered on: 01/18/15 Sex Sex Representation Male (finding) Patient Care team information Care Team Personnel Name: Claudia Cortes NP Position: Reference Physician Member Role: Primary Care Nurse Address: [address] [place] [address]- Telecom: Name: Marsha Quiles Position: S RN Supv Member Role: Primary Care Nurse Name: Christina Chambers RN Position: [facility] RN Member Role: Primary Care Nurse Name: Gregorio Pna MD Position: [facility] Renal MD Member Role: Lifetime Consulting Physician Address: [address] [place] [address] [address] [place] [address]- [place] Telecom: Name: Maxim Henderson RN Position: S RN Member Role: Primary Care Nurse Name: Shruthi Gupta RN Position: [facility] RN Member Role: Primary Care Nurse Name: Brisa Anderson RN Position: S RN Member Role: Primary Care Nurse Name: Alana Herrera RN Position: S RN Member Role: Primary Care Nurse Name: Adrienne Hooker RN Position: [facility] SN RN Member Role: Primary Care Nurse Name: Vincent Padilla RN Position: [facility] ED RN W/OE and Tasks Member Role: Primary Care Nurse Name: Neftaly Escalante RN Position: [facility] RN Member Role: Primary Care Nurse Name: Bhargavi Christian Position: [facility] AMB Nurse Member Role: Lifetime Consulting Physician Name: Deirdre Rai RN Position: [facility] ED RN W/OE and Tasks Member Role: Primary Care Nurse Name: Kimberly Crenshaw MD Position: [facility] Physician - Primary Care Member Role: PCP Address: [address] [place] [address]- [place] Telecom: Name: Carly Mccarthy NP Position: [facility] Outreach Member Role: Lifetime Consulting Physician Address: [address] [place] [address]- Telecom: Name: Shea Triplett MD Position: [facility] Cardiology MD Member Role: Lifetime Consulting Physician Name: Adrienne Renteria RN Position: [facility] RN Member Role: Primary Care Nurse Name: Dixie Whitney RN Position: [facility] OB RN Member Role: Primary Care Nurse Name: Romel Lopes DO Position: [facility] Cardiology MD Member Role: Lifetime Consulting Physician Address: [address] [place] [address], [address] [place] [address]- [place] Telecom: Name: Jenifer Aguilar RN Position: [facility] RN Member Role: Primary Care [...]
--- OUTSIDE RECORDS SUMMARY | 2024-12-04 14:11 | XMS_ITS | Continuity of Care Document ---
Author Organization [facility] Card[facility] Address [facility] [place] [address]- Care Team Providers Care Wic Site Coordinator Name Role Phone Flower GALLARDO, Kimberly Primary Care Physician Encounter [facility] Date(s): 10/28/24 - 11/27/24 [facility] [address] [place] [id number]- Attending Physician: Garret Watson Admitting Physician: Garret Watson Referring Physician: Garret Watson Encounter Type: Triage Allergies, Adverse Reactions, Alerts [...] virus vaccine, inactivated 07/07/24 Anup rded SARS-CoV-2(COVID-19)mRNA-LNP vac([id number]) 07/07/24 Recorded hepatitis B adult vaccine 07/06/24 Recorded Hepatitis A Adult Vaccine 07/06/24 Recorded Pneumococcal Vaccine (oldterm) 1 06/13/11 Given FluLaval (oldterm) 2 06/13/11 Given 1Admin Note: Information sheet given 2Admin Note: [facility] info given to pt. 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 [...] on: 01/18/15 Sex Sex Representation Male (finding) Cardiology * Event Display: Cardiology Office Note, Non-BH Authored Date: * Event Display: Cardiology Office Note, Non-BH Authored Date: * Event Display: CardioPulmonary Exercise Test Results Authored Date: * Event Display: CardioPulmonary Exercise Test Results Authored Date: * Event Display: Cardiovascular Result Scanned Authored Date: Note * Event Display: Phase 2 Cardiac Rehab Plan of Care Authored Date: Cardiology Outpatient Note * Yara HOPKINS, Donna Rosenberg: PERFORM, SIGN, VERIFY Event Display: Cardiology Note Office Authored Date: Patient: ALB[place]IA SANCHEZ Age: 64 years Sex: Male : 1955 Associated Diagnoses: None Author: Yara HOPKINS, Donna Roesnberg To Whom It May Concern, [place] Sanchez is under my care. For the next 30 days it is not advised that he travel by air. This will be reevaluated at his next office visit. Sincerely Dr Shea Triple[facility] Patient Care team information Care Team Personnel Name: Claudia Cortes NP Position: Reference Physician Member Role: Primary Care Nurse Address: [address] [place] [id number]- [place] Telecom: Name: Marsha Quiles Position: [facility] RN Supv Member Role: Primary Care Nurse Name: Christina Chambers RN Position: [facility] RN Member Role: Primary Care Nurse Name: Gregorio Pan MD Position: [facility] Renal MD Member Role: Lifetime Consulting Physician Address: [address] [place] [address] [id number] [facility] [place] [address]- [place] Telecom: Name: Maxim Henderson RN Position: [facility] RN Member Role: Primary Care Nurse Name: Shruthi Gupta RN Position: [facility] SN RN Member Role: Primary Care Nurse Name: Brisa Anderson RN Position: [facility] RN Member Role: Primary Care Nurse Name: Alana Herrera RN Position: [facility] RN Member Role: Primary Care Nurse Name: dArienne Hooker RN Position: [facility] SN RN Member Role: Primary Care Nurse Name: Vincent Padilla RN Position: [facility] RN Member Role: Primary Care Nurse Name: Neftaly Escalante RN Position: [facility] RN Member Role: Primary Care Nurse Name: Bhargavi Christian Position: [facility] AMB Nurse Member Role: Lifetime Consulting Physician Name: Deirdre Rai RN Position: [facility] ED RN W/OE and Tasks Member Role: Primary Care Nurse Name: Kimberly Crenshaw MD Position: [facility] Physician - Primary Care Member Role: PCP Address: [address] [facility] 3rd [place] [address]- [place] Telecom: Name: Carly Mccarthy NP Position: S Outreach Member Role: Lifetime Consulting Physician Address: [address] [place] [address]- Telecom: Name: Shea Triplett MD Position: [facility] Cardiology MD Member Role: Lifetime Consulting Physician Name: Adrienne Renteria RN Position: S RN Member Role: Primary Care Nurse Name: Dixie Whitney RN Position: [facility] OB RN Member Role: Primary Care Nurse Name: Romel Lopes DO Position: [facility] Cardiology MD Member Role: Lifetime Consulting Physician Address: [address] [place] [address], [address] Telecom: Name: Jenifer Aguilar RN Position: S RN Member Role: Primary Care Nurse Care Team Related Persons Name: SALTY SANCHEZ Name: KAYLA NUÑEZ Insurance Providers Guarantor [facility] [facility] Plan Information #: 1 Payer: NA Member Number: NA Policy Number: NA Group Number: NA
== END 2024-12-04 11:33 | disposition home or self-care (01) ==
LOC: HO.10HDL 11:32
PROVIDERS: Visit Provider Internal Medicine Nephrology
DX: N25.81 Secondary hyperparathyroidism of renal origin (principal); I25.5 Ischemic cardiomyopathy; N20.0 Calculus of kidney; N18.4 Chronic kidney disease, stage 4 (severe)
CPT/HCPCS: 36415; 80051; 82565; 84520

== ENCOUNTER 2024-12-05 10:28 | Outpatient (AMB) | payer MEDICARE, BC, SELFPAY ==
--- NOTE | 2024-12-05 10:59 | HO.NEPHOV_ITS ---
Vital Signs 12/05/24 11:01 Height 5 ft 10 in Weight 164 lb 2 oz BMI 23.5 BP 124/60 Blood Pressure Location Rt brachial Position Sitting Pulse 75 Pulse Source Pulse Oximeter Pulse Oximetry (%) 96 Oxygen Delivery Method Room Air Intake Visit Reasons: CKD-Conf Route Salesman And Driver Required: No Accompanied by: Self / Same As Patient Allergies azithromycin Allergy (Verified 12/05/24 11:01) Unknown ciprofloxacin Allergy (Verified 12/05/24 11:01) Unknown rivaroxaban Allergy (Verified 12/05/24 11:01) Unknown simvastatin Allergy (Verified 12/05/24 11:01) Unknown torsemide Allergy (Verified 12/05/24 11:01) Unknown amiodarone Allergy (Uncoded 08/03/23 08:56) Unknown eggs Allergy (Uncoded 08/03/23 08:56) Unknown prednisone Allergy (Uncoded 08/03/23 08:56) Unknown rimantadine Allergy (Uncoded 08/03/23 08:56) Unknown HPI Comments Details: I had the privilege of seeing Elmer in follow up after his recent donor heart and renal transplant. ( Discharge summary notes from [place] not available for review at this office visit).He is closely followed up in heart and renal transplant division in [facility], next one being next . He had a stormy post operative course with ATN but his serum creatinine has improved to 2.34. His urine output is good. He maintains good hydrations. He has no tremors or any side effects from calcineurin inhibitor. He has no nausea, vomiting, diarrhea, pain over transplant, hematuria, dysuria , fever , skin rashes, dizzness, chest pain, palpitations or syncope. He feels improved. He has also see Dr Lopes locally in follow up for his heart transplant [facility] Medical History (Updated 12/08/24 @ 21:18 by Gregorio Pan MD) Cardiomyopathy Calculus of kidney Chronic kidney disease, stage 4 (severe) Surgical History (Updated 12/08/24 @ 21:18 by Gregorio Pan MD) Kidney transplant status Heart transplanted S/P ablation of atrial fibrillation Social History Alcohol intake: never Patient Tobacco Use Status: Never used Tobacco Review of Systems Const All systems reviewed & are unremarkable except as noted in HPI and below Physical Exam Vital Signs: Last Vital Signs Pulse 75 12/05/24 11:01 BP 124/60 12/05/24 11:01 Pulse Ox 96 12/05/24 11:01 Oxygen Delivery Method Room Air 12/05/24 11:01 BMI result Body Mass Index 23.5 Const General: comfortable and no acute distress Orientation/consciousness: patient oriented x3 HEENT Head: Yes normocephalic Mouth: Normal oral and palatal mucosa present Eyes EOM: EOMs intact bilaterally Neck Neck: Yes supple Resp Auscultation: clear to auscultation bilaterally Cardio Jugular venous distension: no JVD Rate: regular rate GI Palpation (GI): Soft to palpation Auscultation: normal bowel sounds Skin General skin exam: no rashes or lesions noted Neuro General: patient oriented x3 and moves all extremities Extrem General: Yes no pedal edema Results Reviewed Nephrology Results: Sodium 140 mmol/L (135-145) 12/04/24 Potassium 4.3 mmol/L (3.3-5.1) 12/04/24 Chloride 107 mmol/L (96-108) 12/04/24 Carbon Dioxide 24 mmol/L (22-29) 12/04/24 BUN 37 mg/dL (9-16) H 12/04/24 Creatinine 2.34 mg/dL (0.5-1.4) H 12/04/24 Calcium 9.7 mg/dL (8.4-10.2) 06/05/24 Phosphorus 2.7 mg/dL (2.7-4.5) 06/05/24 PTH Intact 89.1 pg/mL (8.7-77.1) H 06/05/24 Assessment & Plan Assessment & Plan (1) Renal transplant recipient: Code(s): Z94.0 - Kidney transplant status Category: Surgical (2) Heart transplant recipient: Code(s): Z94.1 - Heart transplant status Category: Medical (3) Secondary hyperparathyroidism of renal origin: Code(s): N25.81 - Secondary hyperparathyroidism of renal origin Category: Medical (4) CKD stage 3a, GFR 45-59 ml/min: Code(s): N18.31 - Chronic kidney disease, stage 3a Category: Medical Plan S/P donor heart and kidney transplant Post operatively had ATN; Luis creatinine as per him 2.3 No rejection so far; UO very good. Tacrolimus level @ goal D/C notes from [place] transplant awaited; BP @ goal Maintain good hydration; No NSAID's; F/U labs Further management is pending evolving data Coding Level of Care Code Est Pt Level 4 (83943) Diagnoses Renal transplant recipient Z94.0 Heart transplant recipient Z94.1 Secondary hyperparathyroidism of renal origin N25.81 CKD stage 3a, GFR 45-59 ml/min N18.31
[2024-12-05 11:01] VITALS: BP 124/60; PULSE 75; O2SAT 96; BMI 23.5
--- OUTSIDE RECORDS SUMMARY | 2024-12-05 11:46 | XMS_ITS | Clinical Summary ---
Author Organization [facility] Address [address] 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
--- OUTSIDE RECORDS SUMMARY | 2024-12-05 11:46 | XMS_ITS | Encounter Summary ---
Author Organization [facility] Address [address] [place] [address] Phone Care Team Providers Care Ink Printer Name Role Phone Kimberly Crenshaw MD Primary Care Provider Encounter Details Date Type Department Care Team (Late st Contact Info) Description 02/23/2021 Orders Only [facility] [address] [place] [phone] Gregorio Pan MD Chronic kidney disease stage [...] Function Panel (02/24/2021 9:41 AM EDT) Pathologist [facility] Glucose 101(H) (70-99) MG/DL [facility] BUN 35(H) (8-23) MG/DL [facility] Creatinine 2.0(H) (0.7-1.2) MG/DL [facility] Sodium 140 (133-145) MMOL/L [facility] Potassium 4.3 (3.6-5.2) MMOL/L [facility] Chloride 107 (98-107) MMOL/L [facility] Bicarbonate (CO2) 22 (22-29) MMOL/L [facility] Anion Gap 11 (4-17) [facility] Albumin 4.3 (3.4-4.8) GM/DL [facility] Calcium 8.9 (8.6-10.5) MG/DL [facility] Phosphorus, Serum 3.0 (2.5-4.5) MG/DL [facility] Est GFR Non 34 ML/MIN/1.7 3 M2 [facility] Comment: Creatinine based estimated glomerular filtration rate (eGFR) is calculated using the Chronic Kidney Disease Epidemiology Collaboration (CKD-EPI). The CKD-EPI creatinine equation has not been validated in children (<18 years), women or in some racial or ethnic subgroups other than Caucasians and Americans. EST GFR 39 ML/MIN/1.7 3 M2 [facility] Comment: Creatinine based estimated glomerular filtration rate (eGFR) is calculated using the Chronic Kidney Disease Epidemiology Collaboration (CKD-EPI). The CKD-EPI creatinine equation has not been validated in children (<18 years), women or in some racial or ethnic subgroups other than Caucasians and Americans. Testing performed or reported by [facility], a Service of [facility], [address] [place] [address] Caitlyn Gonzalez MD, Deputy Felony Clerk 02/24/2021 9:41 AM EDT 02/24/2021 9:44 AM EDT us Gregorio Pan MD LAB BLOOD ORDERABLES Final Resul t [facility] * (ABNORMAL) CBC (02/24/2021 9:41 AM EDT) White Blood Cells 5.5 (4.0-11.0) K/MM3 [facility] RBC 4.56(L) (4.70-6.10 ) M/MM3 [facility] Hgb 13.9 (13.7-17.1 ) GM/DL [facility] Hematocrit 43.9 (40.5-50.0 ) % [facility] MCV 96.3(H) (80.0-94.0 ) FL [facility] MCH 30.5 (27.0-34.0 ) PG [facility] MCHC 31.7(L) (33.0-37.0 ) g/dL [facility] Platelets 121(L) (150-460) K/MM3 [facility] RDW-SD 47.3(H) (<47.0) FL [facility] MPV 12.1 (9.4-12.4) FL [facility] nRBC Count 0.0 #/100 WBC'S [facility] NRBC Absolute 0.0 K/MM3 [facility] Comment: Testing performed or reported by [facility], a Service of [facility], [address] [place] [id number] Caitlyn Gonzalez MD, Deputy Felony Clerk Blood (Blood, Venous) 02/24/2021 9:41 AM EDT 02/24/2021 9:44 AM EDT us Gregorio Pan MD LAB BLOOD ORDERABLES Final Resul t [facility] documented in this encounter Visit Diagnoses Diagnosis Chronic kidney disease stage 4 (HCC) Renal stone documented in this encounter Care Teams Ink Printer Relationship Specialty Start Date End Date Kimberly Crenshaw MD [address] PCP - General 10/11/20 documented as of this encounter
== END 2024-12-05 11:29 | disposition home or self-care (01) ==
PROVIDERS: PCP Internal Medicine; Visit Provider Internal Medicine Nephrology
DX: Z94.0 Kidney transplant status (principal); Z94.1 Heart transplant status; N25.81 Secondary hyperparathyroidism of renal origin; N18.31 Chronic kidney disease, stage 3a
CPT/HCPCS: 99214

== ENCOUNTER → 2024-12-05 10:28 | Outpatient (BNVA) | payer MEDICARE, SELFPAY | PROVIDERS: PCP Internal Medicine; Visit Provider Internal Medicine Nephrology | DX: N18.31 Chronic kidney disease, stage 3a (principal); N25.81 Secondary hyperparathyroidism of renal origin; Z94.0 Kidney transplant status; Z94.1 Heart transplant status | CPT/HCPCS: 99212 ==

== ENCOUNTER 2025-03-19 12:02 | Outpatient (REF) | payer BC, SELFPAY ==
--- OUTSIDE RECORDS SUMMARY | 2025-03-19 13:24 | XMS_ITS | Encounter Summary ---
Author Organization [facility] Address [address] [place] [address] Phone Care Team Providers Care Graphics Manager Name Role Phone Kimberly Crenshaw MD Primary Care Provider Encounter Details Date Type Department Care Team (Late st Contact Info) Description 02/23/2021 Orders Only [facility] [address] [place] [phone] Gregorio Pan MD Chronic kidney disease stage [...] Function Panel (02/24/2021 9:41 AM EDT) Pathologist [facility] Glucose 101(H) (70-99) MG/DL [facility] BUN 35(H) (8-23) MG/DL [facility] Creatinine 2.0(H) (0.7-1.2) MG/DL [facility] Sodium 140 (133-145) MMOL/L [facility] Potassium 4.3 (3.6-5.2) MMOL/L [facility] Chloride 107 (98-107) MMOL/L [facility] Bicarbonate (CO2) 22 (22-29) MMOL/L [facility] Anion Gap 11 (4-17) [facility] Albumin 4.3 (3.4-4.8) GM/DL [facility] Calcium 8.9 (8.6-10.5) MG/DL [facility] Phosphorus, Serum 3.0 (2.5-4.5) MG/DL [facility] Est GFR Non 34 ML/MIN/1.7 3 M2 [facility] Comment: Creatinine based estimated glomerular filtration rate (eGFR) is calculated using the Chronic Kidney Disease Epidemiology Collaboration (CKD-EPI). The CKD-EPI creatinine equation has not been validated in children (<18 years), women or in some racial or ethnic subgroups other than Caucasians and Americans. EST GFR 39 ML/MIN/1.7 3 M2 [facility] Comment: Creatinine based estimated glomerular filtration rate (eGFR) is calculated using the Chronic Kidney Disease Epidemiology Collaboration (CKD-EPI). The CKD-EPI creatinine equation has not been validated in children (<18 years), women or in some racial or ethnic subgroups other than Caucasians and Americans. Testing performed or reported by [facility], a Service of [facility], [address] [place] [address] Caitlyn Gonzalez MD, Etcher Electrolytic 02/24/2021 9:41 AM EDT 02/24/2021 9:44 AM EDT us Gregorio Pan MD LAB BLOOD ORDERABLES Final Resul t [facility] * (ABNORMAL) CBC (02/24/2021 9:41 AM EDT) White Blood Cells 5.5 (4.0-11.0) K/MM3 [facility] RBC 4.56(L) (4.70-6.10 ) M/MM3 [facility] Hgb 13.9 (13.7-17.1 ) GM/DL [facility] Hematocrit 43.9 (40.5-50.0 ) % [facility] MCV 96.3(H) (80.0-94.0 ) FL [facility] MCH 30.5 (27.0-34.0 ) PG [facility] MCHC 31.7(L) (33.0-37.0 ) g/dL [facility] Platelets 121(L) (150-460) K/MM3 [facility] RDW-SD 47.3(H) (<47.0) FL [facility] MPV 12.1 (9.4-12.4) FL [facility] nRBC Count 0.0 #/100 WBC'S [facility] NRBC Absolute 0.0 K/MM3 [facility] Comment: Testing performed or reported by [facility], a Service of [facility], [address] [place] [id number] Caitlyn Gonzalez MD, Etcher Electrolytic Blood specimen (specimen) Venous blood / Unknown 02/24/2021 9:41 AM EDT 02/24/2021 9:44 AM EDT us Gregorio Pan MD LAB BLOOD ORDERABLES Final Resul t [facility] documented in this encounter Visit Diagnoses Diagnosis Chronic kidney disease stage 4 (HCC) Renal stone documented in this encounter Care Teams Graphics Manager Relationship Specialty Start Date End Date Kimberly Crenshaw MD [address] PCP - General 10/11/20 documented as of this encounter
[2025-03-19 13:25] LABS: Anion Gap 13 (12-20); Blood Urea Nitrogen 33 mg/dL (9-16); Carbon Dioxide 26 mmol/L (22-29); Chloride 108 mmol/L (96-108); Estimated Glomerular Filt Rate 31; Potassium 4.2 mmol/L (3.3-5.1); Sodium 143 mmol/L (135-145)
[2025-03-19 14:01] LABS: Uric Acid 7.6 mg/dL (3.4-7.0)
== END 2025-03-19 12:03 | disposition home or self-care (01) ==
LOC: HO.10HDL 12:02
PROVIDERS: Visit Provider Internal Medicine Nephrology
DX: N18.4 Chronic kidney disease, stage 4 (severe) (principal)
CPT/HCPCS: 36415; 80051; 82565; 84520; 84550

== ENCOUNTER 2025-03-20 10:27 | Outpatient (AMB) | payer BC, SELFPAY ==
--- NOTE | 2025-03-20 10:42 | HO.NEPHOV_ITS ---
Vital Signs 03/20/25 10:43 Height 5 ft 10 in Weight 159 lb 4 oz BMI 22.8 BP 148/80 H Blood Pressure Location Rt brachial Position Sitting Pulse 79 Pulse Source Pulse Oximeter Pulse Oximetry (%) 97 Oxygen Delivery Method Room Air Intake Visit Reasons: 3mon follow-up No labs Solder Cream Maker Required: No Accompanied by: Self / Same As Patient Allergies azithromycin Allergy (Verified 03/20/25 10:42) Unknown ciprofloxacin Allergy (Verified 03/20/25 10:42) Unknown rivaroxaban Allergy (Verified 03/20/25 10:42) Unknown simvastatin Allergy (Verified 03/20/25 10:42) Unknown torsemide Allergy (Verified 03/20/25 10:42) Unknown amiodarone Allergy (Uncoded 08/03/23 08:56) Unknown eggs Allergy (Uncoded 08/03/23 08:56) Unknown prednisone Allergy (Uncoded 08/03/23 08:56) Unknown rimantadine Allergy (Uncoded 08/03/23 08:56) Unknown HPI Comments Details: I had the privilege of seeing Elmer in follow up after his recent donor heart and renal transplant. in [facility]. He is closely followed up in heart and renal transplant division in [facility]. He had a stormy post operative course with ATN but his serum creatinine has improved to 2.1. 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 He is BK negative and is on tacrolimus and mycophenolate. His urine output is good. He maintains good hydrations. He has no tremors or any side effects from calcineurin inhibitor. He has no nausea, vomiting, diarrhea, pain over transplant, hematuria, dysuria , fever , skin rashes, dizzness, chest pain, palpitations or syncope. He has also see Dr Lopes locally in follow up for his heart transplant [facility] Medical History (Updated 12/08/24 @ 21:18 by Gregorio Pan MD) Cardiomyopathy Calculus of kidney Chronic kidney disease, stage 4 (severe) Surgical History Kidney transplant status Heart transplanted S/P ablation of atrial fibrillation Social History Alcohol intake: never Patient Tobacco Use Status: Never used Tobacco Review of Systems Const All systems reviewed & are unremarkable except as noted in HPI and below Physical Exam Vital Signs: Last Vital Signs Pulse 79 03/20/25 10:43 BP 148/80 H 03/20/25 10:43 Pulse Ox 97 03/20/25 10:43 Oxygen Delivery Method Room Air 03/20/25 10:43 BMI result Body Mass Index 22.8 Const General: comfortable and no acute distress Orientation/consciousness: patient oriented x3 HEENT Head: Yes normocephalic Mouth: Normal oral and palatal mucosa present Eyes EOM: EOMs intact bilaterally Neck Neck: Yes supple Resp Auscultation: clear to auscultation bilaterally Cardio Jugular venous distension: no JVD Rate: regular rate GI Palpation (GI): Soft to palpation Auscultation: normal bowel sounds General: Yes no CVA tenderness Back/Spine/Pelvis Back: no CVA tenderness Skin General skin exam: no rashes or lesions noted Neuro General: patient oriented x3 and moves all extremities Extrem General: Yes no pedal edema Results Reviewed Nephrology Results: Sodium, (135-145) 143 mmol/L 03/19/25 Potassium, (3.3-5.1) 4.2 mmol/L 03/19/25 Chloride, (96-108) 108 mmol/L 03/19/25 Carbon Dioxide, (22-29) 26 mmol/L 03/19/25 BUN, (9-16) 33 mg/dL H 03/19/25 Creatinine, (0.5-1.4) 2.14 mg/dL H 03/19/25 Calcium, (8.4-10.2) 9.7 mg/dL 06/05/24 Phosphorus, (2.7-4.5) 2.7 mg/dL 06/05/24 PTH Intact, (8.7-77.1) 89.1 pg/mL H 06/05/24 Assessment & Plan Assessment & Plan (1) Heart transplant recipient: Code(s): Z94.1 - Heart transplant status Category: Medical (2) Renal transplant recipient: Code(s): Z94.0 - Kidney transplant status Category: Surgical (3) CKD stage 3a, GFR 45-59 ml/min: Code(s): N18.31 - Chronic kidney disease, stage 3a Category: Medical Plan S/P donor heart and kidney transplant Post operatively had ATN; Luis creatinine is 2.1 post cellular rejection trt UO very good. Tacrolimus level @ goal; Will benefit from cellcept 750 mg bid BP @ goal; Protienuria better; Will benefit from low dose ACEI Maintain good hydration; No NSAID's; F/U labs; Shall D/C with [facility] renal MD Further management is pending evolving data Coding Level of Care Code Est Pt Level 4 (69425) Diagnoses Heart transplant recipient Z94.1 Renal transplant recipient Z94.0 CKD stage 3a, GFR 45-59 ml/min N18.31
[2025-03-20 10:43] VITALS: BP 148/80; PULSE 79; O2SAT 97; BMI 22.8
--- OUTSIDE RECORDS SUMMARY | 2025-03-20 10:50 | XMS_ITS | Encounter Summary ---
Author Organization [facility] Address [address] [place] [address] Phone Care Team Providers Care Sports Official Name Role Phone Kimberly Crenshaw MD Primary Care Provider Encounter Details Date Type Department Care Team (Late st Contact Info) Description 02/23/2021 Orders Only [facility] [address] [place] [phone] Gregorio Pan MD Chronic kidney disease stage [...] Function Panel (02/24/2021 9:41 AM EDT) Pathologist [facility] Glucose 101(H) (70-99) MG/DL [facility] BUN 35(H) (8-23) MG/DL [facility] Creatinine 2.0(H) (0.7-1.2) MG/DL [facility] Sodium 140 (133-145) MMOL/L [facility] Potassium 4.3 (3.6-5.2) MMOL/L [facility] Chloride 107 (98-107) MMOL/L [facility] Bicarbonate (CO2) 22 (22-29) MMOL/L [facility] Anion Gap 11 (4-17) [facility] Albumin 4.3 (3.4-4.8) GM/DL [facility] Calcium 8.9 (8.6-10.5) MG/DL [facility] Phosphorus, Serum 3.0 (2.5-4.5) MG/DL [facility] Est GFR Non 34 ML/MIN/1.7 3 M2 [facility] Comment: Creatinine based estimated glomerular filtration rate (eGFR) is calculated using the Chronic Kidney Disease Epidemiology Collaboration (CKD-EPI). The CKD-EPI creatinine equation has not been validated in children (<18 years), women or in some racial or ethnic subgroups other than Caucasians and Americans. EST GFR 39 ML/MIN/1.7 3 M2 [facility] Comment: Creatinine based estimated glomerular filtration rate (eGFR) is calculated using the Chronic Kidney Disease Epidemiology Collaboration (CKD-EPI). The CKD-EPI creatinine equation has not been validated in children (<18 years), women or in some racial or ethnic subgroups other than Caucasians and Americans. Testing performed or reported by [facility], a Service of [facility], [address] [place] [address] Caitlyn Gonzalez MD, Balance Staff Inspector 02/24/2021 9:41 AM EDT 02/24/2021 9:44 AM EDT us Gregorio Pan MD LAB BLOOD ORDERABLES Final Resul t [facility] * (ABNORMAL) CBC (02/24/2021 9:41 AM EDT) White Blood Cells 5.5 (4.0-11.0) K/MM3 [facility] RBC 4.56(L) (4.70-6.10 ) M/MM3 [facility] Hgb 13.9 (13.7-17.1 ) GM/DL [facility] Hematocrit 43.9 (40.5-50.0 ) % [facility] MCV 96.3(H) (80.0-94.0 ) FL [facility] MCH 30.5 (27.0-34.0 ) PG [facility] MCHC 31.7(L) (33.0-37.0 ) g/dL [facility] Platelets 121(L) (150-460) K/MM3 [facility] RDW-SD 47.3(H) (<47.0) FL [facility] MPV 12.1 (9.4-12.4) FL [facility] nRBC Count 0.0 #/100 WBC'S [facility] NRBC Absolute 0.0 K/MM3 [facility] Comment: Testing performed or reported by [facility], a Service of [facility], [address] [place] [id number] Caitlyn Gonzalez MD, Balance Staff Inspector Blood specimen (specimen) Venous blood / Unknown 02/24/2021 9:41 AM EDT 02/24/2021 9:44 AM EDT us Gregorio Pan MD LAB BLOOD ORDERABLES Final Resul t [facility] documented in this encounter Visit Diagnoses Diagnosis Chronic kidney disease stage 4 (HCC) Renal stone documented in this encounter Care Teams Sports Official Relationship Specialty Start Date End Date Kimberly Crenshaw MD [address] PCP - General 10/11/20 documented as of this encounter
== END 2025-03-20 11:09 | disposition home or self-care (01) ==
LOC: HO.HKA 10:28
PROVIDERS: PCP Internal Medicine; Visit Provider Internal Medicine Nephrology
DX: Z94.1 Heart transplant status (principal); Z94.0 Kidney transplant status; N18.31 Chronic kidney disease, stage 3a
CPT/HCPCS: 99214

== ENCOUNTER 2025-06-12 08:55 | Outpatient (REF) | payer BC, SELFPAY ==
--- OUTSIDE RECORDS SUMMARY | 2025-06-12 09:44 | XMS_ITS | Encounter Summary ---
Author Organization [facility] Address [address] [place] [address] Phone Care Team Providers Care Waste Oil Pumper Name Role Phone Kimberly Crenshaw MD Primary Care Provider Encounter Details Date Type Department Care Team (Late st Contact Info) Description 02/23/2021 Orders Only [facility] [address] [place] [phone] Gregorio Pan MD Chronic kidney disease stage [...] Pathologist [facility] Glucose 101(H) (70-99) MG/DL [facility] BUN 35(H) (8-23) MG/DL [facility] Creatinine 2.0(H) (0.7-1.2) MG/DL [facility] Sodium 140 (133-145) MMOL/L [facility] Potassium 4.3 (3.6-5.2) MMOL/L [facility] Chloride 107 (98-107) MMOL/L [facility] Bicarbonate (CO2) 22 (22-29) MMOL/L [facility] Anion Gap 11 (4-17) [facility] Albumin 4.3 (3.4-4.8) GM/DL [facility] Calcium 8.9 (8.6-10.5) MG/DL [facility] Phosphorus, Serum 3.0 (2.5-4.5) MG/DL [facility] Est GFR Non 34 ML/MIN/1.7 3 M2 [facility] Comment: Creatinine based estimated glomerular filtration rate (eGFR) is calculated using the Chronic Kidney Disease Epidemiology Collaboration (CKD-EPI). The CKD-EPI creatinine equation has not been validated in children (<18 years), women or in some racial or ethnic subgroups other than Caucasians and Americans. EST GFR 39 ML/MIN/1.7 3 M2 [facility] Comment: Creatinine based estimated glomerular filtration rate (eGFR) is calculated using the Chronic Kidney Disease Epidemiology Collaboration (CKD-EPI). The CKD-EPI creatinine equation has not been validated in children (<18 years), women or in some racial or ethnic subgroups other than Caucasians and Americans. Testing performed or reported by [facility], a Service of [facility], [address] [place] [address] Caitlyn Gonzalez MD, Co Founder And Cto 02/24/2021 9:41 AM EDT 02/24/2021 9:44 AM EDT us Gregorio Pan MD LAB BLOOD ORDERABLES Final Resul t [facility] * (ABNORMAL) CBC (02/24/2021 9:41 AM EDT) White Blood Cells 5.5 (4.0-11.0) K/MM3 [facility] RBC 4.56(L) (4.70-6.10 ) M/MM3 [facility] Hgb 13.9 (13.7-17.1 ) GM/DL [facility] Hematocrit 43.9 (40.5-50.0 ) % [facility] MCV 96.3(H) (80.0-94.0 ) FL [facility] MCH 30.5 (27.0-34.0 ) PG [facility] MCHC 31.7(L) (33.0-37.0 ) g/dL [facility] Platelets 121(L) (150-460) K/MM3 [facility] RDW-SD 47.3(H) (<47.0) FL [facility] MPV 12.1 (9.4-12.4) FL [facility] nRBC Count 0.0 #/100 WBC'S [facility] NRBC Absolute 0.0 K/MM3 [facility] Comment: Testing performed or reported by [facility], a Service of [facility], [address] [place] [id number] Caitlyn Gonzalez MD, Co Founder And Cto Blood specimen (specimen) Venous blood / Unknown 02/24/2021 9:41 AM EDT 02/24/2021 9:44 AM EDT us Gregorio Pan MD LAB BLOOD ORDERABLES Final Resul t [facility] documented in this encounter Visit Diagnoses Diagnosis Chronic kidney disease stage 4 (HCC) Renal stone documented in this encounter Care Teams Waste Oil Pumper Relationship Specialty Start Date End Date Kimberly Crenshaw MD [address] PCP - General 10/11/20 documented as of this encounter
--- OUTSIDE RECORDS SUMMARY | 2025-06-12 09:44 | XMS_ITS | Clinical Summary ---
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 Cath showed left main looks okay, LAD with diffuse disease, ramus of moderate size, proximal 75%, mid 90%, left circumflex 99%, mid 90%, with LVEDP 30-35%.CC 01/02/11 showed elevated LVEDP 32 mmHG, occluded RCA, recent ; 40% midLAD, Lcx 75%, OMB with 90%, 80% lesions. Immunizations Immunization Administration Dates Next Due Influenza Whole 06/13/2011 [...] 68 05/17/2023 5:11 PM EDT Temperature 36.8 C (98.2 F) 09/26/2021 12:00 PM EST Respiratory Rate - - Oxygen Saturation - [...] Colorectal Cancer Screening: Sigmoidoscopy 2005 Pneumococcal Vaccine: 50+ Ye ars (2 of 2 - PCV) 06/13/2012 06/13/2011 Influenza Vaccine (#1) 2025 06/13/2011 Pneumococcal Vaccine: Peds ( 0 to 5 Years) and At-Risk Patients (6 to 49 Years) Discontinued 06/13/2011 Hepatitis B Vaccine Aged Out No longe r eligible based on patient's age to complete this topic Insurance [facility] Care Teams Belt Lacer Relationship Specialty Start Date End Date Kimberly Crenshaw MD [address] PCP - General 1/11/21
[2025-06-12 10:18] LABS: MANUAL DIFF FLAG NO
[2025-06-12 10:21] LABS: Hematocrit 40.4 % (42.0-52.0); Hemoglobin 13.2 g/dl (14.0-18.0); Imm Gran Abs Auto 0.06 X10*3/uL (0.00-0.03); Imm Gran Pct Auto 0.8 % (0.0-0.4); Lymphocytes Absolute Auto 1.0 X10*3/uL (1.2-4.9); Mean Corpuscular HGB Conc 32.7 g/dl (31.0-36.0); Mean Corpuscular Hemoglobin 29.7 pg (27.0-33.0); Mean Corpuscular Volume 91.0 fL (80.0-98.0); NRBC Abs Auto 0.020 X10*3/uL (0.0-0.012); NRBC Pct Auto 0.3 /100WBC (0.0-0.2); Platelet Count 144 X10*3/uL (160-400); Red Blood Count 4.44 X10*6/uL (4.60-5.80); White Blood Count 7.1 X10*3/uL (4.8-10.8)
[2025-06-12 10:45] LABS: Alanine Aminotransferase 16 U/L (0-40); Anion Gap 15 (12-20); Aspartate Amino Transferase 24 U/L (5-37); Blood Urea Nitrogen 42 mg/dL (9-16); Calcium 9.3 mg/dL (8.4-10.2); Carbon Dioxide 26 mmol/L (22-29); Chloride 106 mmol/L (96-108); Estimated Glomerular Filt Rate 32; Magnesium 2.0 mg/dL (1.6-2.6); Potassium 3.6 mmol/L (3.3-5.1); Sodium 143 mmol/L (135-145)
[2025-06-12 11:38] LABS: Protein/Creatinine Ratio, Ur 0.86 (<0.2); Total Protein Urine Random 129 mg/dL (<12)
[2025-06-12 11:43] LABS: Parathyroid Hormone Intact 143.7 pg/mL (8.7-77.1)
[2025-06-13 10:24] LABS: Tacrolimus Prograf 9.9 mcg/L
== END 2025-06-12 08:56 | disposition home or self-care (01) ==
LOC: HO.10HDL 08:55
PROVIDERS: Visit Provider Internal Medicine Nephrology
DX: N25.81 Secondary hyperparathyroidism of renal origin (principal); Z94.1 Heart transplant status; Z94.0 Kidney transplant status
CPT/HCPCS: 36415; 80051; 80197; 82306; 82310; 82565; 82570; 83735; 83970; 84100; 84156; 84450; 84460; 84520; 85025

== ENCOUNTER 2025-06-15 10:05 | Outpatient (AMB) | payer BC, SELFPAY ==
[2025-06-15 10:08] VITALS: BP 110/54; PULSE 79; O2SAT 97; BMI 23.2
--- NOTE | 2025-06-15 10:08 | HO.NEPHOV ---
Vital Signs 06/15/25 10:08 Height 5 ft 10 in Weight 161 lb 8 oz BMI 23.2 BP 110/54 L Blood Pressure Location Rt brachial Position Sitting Pulse 79 Pulse Source Pulse Oximeter Pulse Oximetry (%) 97 Oxygen Delivery Method Room Air Intake Visit Reasons: 3mon [id number] Billing Customer Service Representative Required: No Accompanied by: Self / Same As Patient Allergies azithromycin Allergy (Verified 06/15/25 10:11) Unknown ciprofloxacin Allergy (Verified 06/15/25 10:11) Unknown rivaroxaban Allergy (Verified 06/15/25 10:11) Unknown simvastatin Allergy (Verified 06/15/25 10:11) Unknown torsemide Allergy (Verified 06/15/25 10:11) Unknown amiodarone Allergy (Uncoded 08/03/23 08:56) Unknown eggs Allergy (Uncoded 08/03/23 08:56) Unknown prednisone Allergy (Uncoded 08/03/23 08:56) Unknown rimantadine Allergy (Uncoded 08/03/23 08:56) Unknown HPI Comments Details: Elmer was seen in follow up after his recent donor heart and renal transplant. in [facility]. He is closely followed up in heart and renal transplant division in [facility]. He had a stormy post operative course with ATN but his serum creatinine has improved to 2.09. 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 He is BK negative and is on tacrolimus and mycophenolate. His urine output is good. He maintains good hydrations. He has no tremors or any side effects from calcineurin inhibitor. He has no nausea, vomiting, diarrhea, pain over transplant, hematuria, dysuria , fever , skin rashes, dizzness, chest pain, palpitations or syncope. He has also see Dr Lopes locally in follow up for his heart transplant. He has a nuclear stress test, ECHO and cardiac biopsy next month. [facility] Medical History (Updated 12/08/24 @ 21:18 by Gregorio Pan MD) Cardiomyopathy Calculus of kidney Chronic kidney disease, stage 4 (severe) Surgical History Kidney transplant status Heart transplanted S/P ablation of atrial fibrillation Social History Alcohol intake: never Patient Tobacco Use Status: Never used Tobacco Review of Systems Const All systems reviewed & are unremarkable except as noted in HPI and below Physical Exam Vital Signs: BMI result Body Mass Index 23.2 Const General: comfortable and no acute distress Orientation/consciousness: patient oriented x3 HEENT Head: Yes normocephalic Mouth: Normal oral and palatal mucosa present Eyes EOM: EOMs intact bilaterally Neck Neck: Yes supple Resp Auscultation: clear to auscultation bilaterally Cardio Jugular venous distension: no JVD Rate: regular rate GI Palpation (GI): Soft to palpation Auscultation: normal bowel sounds General: Yes no CVA tenderness Back/Spine/Pelvis Back: no CVA tenderness Skin General skin exam: no rashes or lesions noted Neuro General: patient oriented x3 and moves all extremities Extrem General: Yes no pedal edema Results Reviewed Nephrology Results: Hgb, (14.0-18.0) 13.2 g/dl L 06/12/25 WBC, (4.8-10.8) 7.1 X10*3/uL 06/12/25 Plt Count, (160-400) 144 X10*3/uL L 06/12/25 Sodium, (135-145) 143 mmol/L 06/12/25 Potassium, (3.3-5.1) 3.6 mmol/L 06/12/25 Chloride, (96-108) 106 mmol/L 06/12/25 Carbon Dioxide, (22-29) 26 mmol/L 06/12/25 BUN, (9-16) 42 mg/dL H 06/12/25 Creatinine, (0.5-1.4) 2.09 mg/dL H 06/12/25 Calcium, (8.4-10.2) 9.3 mg/dL 06/12/25 Phosphorus, (2.7-4.5) 3.3 mg/dL 06/12/25 PTH Intact, (8.7-77.1) 143.7 pg/mL H 06/12/25 Urine Creatinine 149.89 mg/dL 06/12/25 Protein/Creatinin Ratio, (<0.2) 0.86 H 06/12/25 Assessment & Plan Assessment & Plan (1) Heart transplant recipient: Code(s): Z94.1 - Heart transplant status Category: Medical (2) Secondary hyperparathyroidism of renal origin: Code(s): N25.81 - Secondary hyperparathyroidism of renal origin Category: Medical (3) Renal transplant recipient: Code(s): Z94.0 - Kidney transplant status Category: Surgical (4) Chronic kidney disease, stage 4 (severe): Code(s): N18.4 - Chronic kidney disease, stage 4 (severe) Category: Medical Plan S/P donor heart and kidney transplant Post operatively had ATN; Luis creatinine is 2.1 post cellular rejection trt UO very good. Tacrolimus level marginally high ; Will benefit from cellcept 750 mg bid BP @ goal; Proteinuria better; Will benefit from low dose ACEI; Being considered for belatecept Maintain good hydration; No NSAID's; F/U labs; Shall discuss with [facility] renal MD Further management is pending evolving data Orders: Orders Tacrolimus Prograf 2 Months N18.4 - Chronic kidney disease, stage 4 (severe), N25.81 - Secondary hyperparathyroidism of renal origin, Z94.0 - Kidney transplant status, Z94.1 - Heart transplant status Creatinine 2 Months N18.4 - Chronic kidney disease, stage 4 (severe), N25.81 - Secondary hyperparathyroidism of renal origin, Z94.0 - Kidney transplant status, Z94.1 - Heart transplant status Blood Urea Nitrogen 2 Months N18.4 - Chronic kidney disease, stage 4 (severe), N25.81 - Secondary hyperparathyroidism of renal origin, Z94.0 - Kidney transplant status, Z94.1 - Heart transplant status Aspartate Amino Transferase 2 Months N18.4 - Chronic kidney disease, stage 4 (severe), N25.81 - Secondary hyperparathyroidism of renal origin, Z94.0 - Kidney transplant status, Z94.1 - Heart transplant status Alanine Aminotransferase 2 Months N18.4 - Chronic kidney disease, stage 4 (severe), N25.81 - Secondary hyperparathyroidism of renal origin, Z94.0 - Kidney transplant status, Z94.1 - Heart transplant status Electrolytes 2 Months N18.4 - Chronic kidney disease, stage 4 (severe), N25.81 - Secondary hyperparathyroidism of renal origin, Z94.0 - Kidney transplant status, Z94.1 - Heart transplant status Calcium 2 Months N18.4 - Chronic kidney disease, stage 4 (severe), N25.81 - Secondary hyperparathyroidism of renal origin, Z94.0 - Kidney transplant status, Z94.1 - Heart transplant status Complete Blood Count Auto Diff 2 Months N18.4 - Chronic kidney disease, stage 4 (severe), N25.81 - Secondary hyperparathyroidism of renal origin, Z94.0 - Kidney transplant status, Z94.1 - Heart transplant status Coding Level of Care Code Est Pt Level 4 (78914) Diagnoses Heart transplant recipient Z94.1 Secondary hyperparathyroidism of renal origin N25.81 Renal transplant recipient Z94.0 Chronic kidney disease, stage 4 (severe) N18.4
--- OUTSIDE RECORDS SUMMARY | 2025-06-15 12:42 | XMS_ITS | Encounter Summary ---
Author Organization [facility] Address [address] [place] [address] Phone Care Team Providers Care Hvac Engineering Technician Name Role Phone Kimberly Crenshaw MD Primary Care Provider Encounter Details Date Type Department Care Team (Late st Contact Info) Description 02/23/2021 Orders Only [facility] [address] [place] [phone] Gregorio Pan MD Chronic kidney disease stage [...] Function Panel (02/24/2021 9:41 AM EDT) Pathologist [facility] Glucose 101(H) (70-99) MG/DL [facility] BUN 35(H) (8-23) MG/DL [facility] Creatinine 2.0(H) (0.7-1.2) MG/DL [facility] Sodium 140 (133-145) MMOL/L [facility] Potassium 4.3 (3.6-5.2) MMOL/L [facility] Chloride 107 (98-107) MMOL/L [facility] Bicarbonate (CO2) 22 (22-29) MMOL/L [facility] Anion Gap 11 (4-17) [facility] Albumin 4.3 (3.4-4.8) GM/DL [facility] Calcium 8.9 (8.6-10.5) MG/DL [facility] Phosphorus, Serum 3.0 (2.5-4.5) MG/DL [facility] Est GFR Non 34 ML/MIN/1.7 3 M2 [facility] Comment: Creatinine based estimated glomerular filtration rate (eGFR) is calculated using the Chronic Kidney Disease Epidemiology Collaboration (CKD-EPI). The CKD-EPI creatinine equation has not been validated in children (<18 years), women or in some racial or ethnic subgroups other than Caucasians and Americans. EST GFR 39 ML/MIN/1.7 3 M2 [facility] Comment: Creatinine based estimated glomerular filtration rate (eGFR) is calculated using the Chronic Kidney Disease Epidemiology Collaboration (CKD-EPI). The CKD-EPI creatinine equation has not been validated in children (<18 years), women or in some racial or ethnic subgroups other than Caucasians and Americans. Testing performed or reported by [facility], a Service of [facility], [address] [place] [address] Caitlyn Gonzalez MD, Thread Dresser 02/24/2021 9:41 AM EDT 02/24/2021 9:44 AM EDT us Gregorio Pan MD LAB BLOOD ORDERABLES Final Resul t [facility] * (ABNORMAL) CBC (02/24/2021 9:41 AM EDT) White Blood Cells 5.5 (4.0-11.0) K/MM3 [facility] RBC 4.56(L) (4.70-6.10 ) M/MM3 [facility] Hgb 13.9 (13.7-17.1 ) GM/DL [facility] Hematocrit 43.9 (40.5-50.0 ) % [facility] MCV 96.3(H) (80.0-94.0 ) FL [facility] MCH 30.5 (27.0-34.0 ) PG [facility] MCHC 31.7(L) (33.0-37.0 ) g/dL [facility] Platelets 121(L) (150-460) K/MM3 [facility] RDW-SD 47.3(H) (<47.0) FL [facility] MPV 12.1 (9.4-12.4) FL [facility] nRBC Count 0.0 #/100 WBC'S [facility] NRBC Absolute 0.0 K/MM3 [facility] Comment: Testing performed or reported by [facility], a Service of [facility], [address] [place] [id number] Caitlyn Gonzalez MD, Thread Dresser Blood specimen (specimen) Venous blood / Unknown 02/24/2021 9:41 AM EDT 02/24/2021 9:44 AM EDT us Gregorio Pan MD LAB BLOOD ORDERABLES Final Resul t [facility] documented in this encounter Visit Diagnoses Diagnosis Chronic kidney disease stage 4 (HCC) Renal stone documented in this encounter Care Teams Hvac Engineering Technician Relationship Specialty Start Date End Date Kimberly Crenshaw MD [address] PCP - General 10/11/20 documented as of this encounter
--- OUTSIDE RECORDS SUMMARY | 2025-06-15 12:42 | XMS_ITS | Clinical Summary ---
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
== END 2025-06-15 10:39 | disposition home or self-care (01) ==
LOC: HO.HKA 10:06
PROVIDERS: PCP Internal Medicine; Visit Provider Internal Medicine Nephrology
DX: Z94.1 Heart transplant status (principal); N25.81 Secondary hyperparathyroidism of renal origin; Z94.0 Kidney transplant status; N18.4 Chronic kidney disease, stage 4 (severe)
CPT/HCPCS: 99214

== ENCOUNTER 2025-09-10 10:30 | Outpatient (REF) | payer BC, SELFPAY ==
[2025-09-10 10:43] LABS: MANUAL DIFF FLAG NO
[2025-09-10 11:16] LABS: Hematocrit 40.5 % (42.0-52.0); Hemoglobin 13.1 g/dl (14.0-18.0); Imm Gran Abs Auto 0.22 X10*3/uL (0.00-0.03); Imm Gran Pct Auto 3.5 % (0.0-0.4); Lymphocytes Absolute Auto 0.6 X10*3/uL (1.2-4.9); Mean Corpuscular HGB Conc 32.3 g/dl (31.0-36.0); Mean Corpuscular Hemoglobin 29.4 pg (27.0-33.0); Mean Corpuscular Volume 90.8 fL (80.0-98.0); NRBC Abs Auto 0.000 X10*3/uL (0.0-0.012); NRBC Pct Auto 0.0 /100WBC (0.0-0.2); Platelet Count 121 X10*3/uL (160-400); Red Blood Count 4.46 X10*6/uL (4.60-5.80); White Blood Count 6.3 X10*3/uL (4.8-10.8)
[2025-09-10 11:54] LABS: Alanine Aminotransferase 15 U/L (0-40); Anion Gap 12 (12-20); Aspartate Amino Transferase 20 U/L (5-37); Blood Urea Nitrogen 28 mg/dL (9-16); Calcium 9.2 mg/dL (8.4-10.2); Carbon Dioxide 24 mmol/L (22-29); Chloride 109 mmol/L (96-108); Estimated Glomerular Filt Rate 35; Potassium 4.0 mmol/L (3.3-5.1); Sodium 141 mmol/L (135-145)
[2025-09-11 10:44] LABS: Tacrolimus Prograf 5.0 mcg/L
== END 2025-09-10 10:31 | disposition home or self-care (01) ==
LOC: HO.LAB 10:30
PROVIDERS: PCP Internal Medicine; Visit Provider Internal Medicine Nephrology
DX: N25.81 Secondary hyperparathyroidism of renal origin (principal); N18.4 Chronic kidney disease, stage 4 (severe); Z94.0 Kidney transplant status; Z94.1 Heart transplant status
CPT/HCPCS: 36415; 80051; 80197; 82310; 82565; 84450; 84460; 84520; 85025

== ENCOUNTER 2025-09-11 10:02 | Outpatient (AMB) | payer BC, SELFPAY ==
--- NOTE | 2025-09-11 10:11 | HO.NEPHOV ---
Vital Signs 09/11/25 10:14 Height 5 ft 10 in Weight 170 lb 2 oz BMI 24.4 BP 110/50 L Blood Pressure Location Rt brachial Position Sitting Pulse 89 Pulse Source Pulse Oximeter Pulse Oximetry (%) 97 Oxygen Delivery Method Room Air Intake Visit Reasons: 2mon f/u w/labs-Conf Cushion Former Required: No Accompanied by: Self / Same As Patient Allergies azithromycin Allergy (Verified 09/11/25 10:14) Unknown ciprofloxacin Allergy (Verified 09/11/25 10:14) Unknown rivaroxaban Allergy (Verified 09/11/25 10:14) Unknown simvastatin Allergy (Verified 09/11/25 10:14) Unknown torsemide Allergy (Verified 09/11/25 10:14) Unknown amiodarone Allergy (Uncoded 08/03/23 08:56) Unknown eggs Allergy (Uncoded 08/03/23 08:56) Unknown prednisone Allergy (Uncoded 08/03/23 08:56) Unknown rimantadine Allergy (Uncoded 08/03/23 08:56) Unknown HPI Comments Details: Elmer was seen in follow up after his recent donor heart and renal transplant. in [facility] [place]. He is closely followed up in heart and renal transplant division in [facility] [place]. He had a stormy post operative course with ATN but his serum creatinine has improved to 1.9. 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 He is BK negative and is on tacrolimus and mycophenolate. His urine output is good. He maintains good hydrations. He has no tremors or any side effects from calcineurin inhibitor. He has no nausea, vomiting, diarrhea, pain over transplant, hematuria, dysuria , fever , skin rashes, dizzness, chest pain, palpitations or syncope. He has also see Dr Lopes locally in follow up for his heart transplant. [facility] Medical History (Updated 09/11/25 @ 10:39 by Gregorio Pan MD) Cardiomyopathy Calculus of kidney Chronic kidney disease, stage 4 (severe) Surgical History Kidney transplant status Heart transplanted S/P ablation of atrial fibrillation Social History Alcohol intake: never Patient Tobacco Use Status: Never used Tobacco Review of Systems Const All systems reviewed & are unremarkable except as noted in HPI and below Physical Exam Vital Signs: Last Vital Signs Pulse 89 09/11/25 10:14 BP 110/50 L 09/11/25 10:14 Pulse Ox 97 09/11/25 10:14 Oxygen Delivery Method Room Air 09/11/25 10:14 BMI result Body Mass Index 24.4 Const General: comfortable and no acute distress Orientation/consciousness: patient oriented x3 HEENT Head: Yes normocephalic Mouth: Normal oral and palatal mucosa present Eyes EOM: EOMs intact bilaterally Neck Neck: Yes supple Resp Auscultation: clear to auscultation bilaterally Cardio Jugular venous distension: no JVD Rate: regular rate Heart sounds: Murmur heart sound present GI Palpation (GI): Soft to palpation Auscultation: normal bowel sounds General: Yes no CVA tenderness Back/Spine/Pelvis Back: no CVA tenderness Skin General skin exam: no rashes or lesions noted Neuro General: patient oriented x3 and moves all extremities Extrem General: Yes no pedal edema Results Reviewed Nephrology Results: Hgb, (14.0-18.0) 13.1 g/dl L 09/10/25 WBC, (4.8-10.8) 6.3 X10*3/uL 09/10/25 Plt Count, (160-400) 121 X10*3/uL L 09/10/25 Sodium, (135-145) 141 mmol/L 09/10/25 Potassium, (3.3-5.1) 4.0 mmol/L 09/10/25 Chloride, (96-108) 109 mmol/L H 09/10/25 Carbon Dioxide, (22-29) 24 mmol/L 09/10/25 BUN, (9-16) 28 mg/dL H 09/10/25 Creatinine, (0.5-1.4) 1.94 mg/dL H 09/10/25 Calcium, (8.4-10.2) 9.2 mg/dL 09/10/25 Phosphorus, (2.7-4.5) 3.3 mg/dL 06/12/25 PTH Intact, (8.7-77.1) 143.7 pg/mL H 06/12/25 Urine Creatinine 149.89 mg/dL 06/12/25 Protein/Creatinin Ratio, (<0.2) 0.86 H 06/12/25 Assessment & Plan Assessment & Plan (1) Heart transplant recipient: Code(s): Z94.1 - Heart transplant status Category: Medical (2) Secondary hyperparathyroidism of renal origin: Code(s): N25.81 - Secondary hyperparathyroidism of renal origin Category: Medical (3) Chronic kidney disease, stage 4 (severe): Code(s): N18.4 - Chronic kidney disease, stage 4 (severe) Category: Medical (4) Renal transplant recipient: Code(s): Z94.0 - Kidney transplant status Category: Surgical (5) Proteinuria: Code(s): R80.9 - Proteinuria, unspecified Category: Medical Qualifiers: Proteinuria type: other Qualified Code(s): R80.8 - Other proteinuria Plan S/P donor heart and kidney transplant Post operatively had ATN; Luis creatinine is 2.1 post cellular rejection trt( now 1.9) UO very good. Tacrolimus level low ; Will need increase in tacrolimus Will benefit from cellcept 750 mg bid; Will benefit from increase in lisinopril to 5 mg @ night (Currently on enalapril 2.5 mg bid); BP @ goal; Proteinuria better; Was considered for belatecept Maintain good hydration; No NSAID's; F/U labs Orders: Orders Tacrolimus Prograf 1 Month N18.4 - Chronic kidney disease, stage 4 (severe), N25.81 - Secondary hyperparathyroidism of renal origin, Z94.1 - Heart transplant status Creatinine 1 Month N18.4 - Chronic kidney disease, stage 4 (severe), N25.81 - Secondary hyperparathyroidism of renal origin, Z94.1 - Heart transplant status Blood Urea Nitrogen 1 Month N18.4 - Chronic kidney disease, stage 4 (severe), N25.81 - Secondary hyperparathyroidism of renal origin, Z94.1 - Heart transplant status Electrolytes 1 Month N18.4 - Chronic kidney disease, stage 4 (severe), N25.81 - Secondary hyperparathyroidism of renal origin, Z94.1 - Heart transplant status Coding Level of Care Code Est Pt Level 4 (86642) Diagnoses Heart transplant recipient Z94.1 Secondary hyperparathyroidism of renal origin N25.81 Chronic kidney disease, stage 4 (severe) N18.4 Renal transplant recipient Z94.0 Other proteinuria R80.8 Proteinuria type: other
[2025-09-11 10:14] VITALS: BP 110/50; PULSE 89; O2SAT 97; BMI 24.4
== END 2025-09-11 10:50 | disposition home or self-care (01) ==
LOC: HO.HKA 10:03
PROVIDERS: PCP Internal Medicine; Visit Provider Internal Medicine Nephrology
DX: Z94.1 Heart transplant status (principal); N25.81 Secondary hyperparathyroidism of renal origin; N18.4 Chronic kidney disease, stage 4 (severe); Z94.0 Kidney transplant status; R80.8 Other proteinuria
CPT/HCPCS: 99214